=== PATIENT | female | born 1960 | race American Indian/Alaskan Native ===

== ENCOUNTER 2020-07-05 15:57 | Emergency (ER) | payer MEDICAID ==
[2020-07-05 19:55] LABS: Alanine Aminotransferase 19 units/L (7-56); Blood Urea Nitrogen 10 mg/dL (7-17); Calcium 9.3 mg/dL (8.4-10.2); Hemolysis Index 26
[2020-07-05 20:00] LABS: BUN/Creatinine Ratio 17
[2020-07-05 20:12] LABS: Hematocrit 43.4 % (30.3-42.9); Hemoglobin 14.3 gm/dl (10.1-14.3); Mean Corpuscular HGB Conc 33 % (30-34); Mean Corpuscular Volume 93 fl (79-97); Platelet Count 181 K/mm3 (140-440); Red Blood Count 4.64 M/mm3 (3.65-5.03); Red Cell Distribution Width 13.3 % (13.2-15.2)
[2020-07-05 20:13] LABS: Eosinophils % (Auto) 0.8 % (0.0-4.3); Lymphocytes % (Auto) 32.6 % (13.4-35.0); Monocytes % (Auto) 8.8 % (0.0-7.3)
[2020-07-05 20:14] LABS: Basophils % (Auto) 0.4 % (0.0-1.8); Eosinophils # (Auto) 0.1 K/mm3 (0.0-0.4); Lymphocytes # (Auto) 2.4 K/mm3 (1.2-5.4); Monocytes # (Auto) 0.6 K/mm3 (0.0-0.8)
[2020-07-06] MEDS ORDERED: PHENYTOIN 100 MG CAPSULE.ER PO ONE (00:39)
[2020-07-06] MEDS ORDERED: levETIRAcetam 500 MG TAB PO ONE ×2 (00:39)
[2020-07-06] MEDS ORDERED: TOPIRAMATE TAB 200 MG TAB PO STA (00:39)
--- NOTE | 2020-07-06 00:41 | Emergency Department Report ---
ED General Adult HPI - General Chief complaint: Seizure Stated complaint: SEIZURE PUI?: No Time Seen by Provider: 07/06/20 00:23 Source: patient, RN notes reviewed Mode of arrival: Ambulatory Limitations: No Limitations, Other (Patient is somewhat of a poor historian) - History of Present Illness Initial comments: The patient was evaluated in the emergency department for symptoms described in the history of present illness. He/she was evaluated in the context of the global COVID-19 pandemic, which necessitated consideration that the patient might be at risk for infection with the virus that causes COVID-19. Institutional protocols and algorithms that pertain to the evaluation of patients at risk for COVID-19 are in a state of rapid change based on information released by regulatory bodies including the CDC and federal and state organizations. These policies and algorithms were followed during the patient's care in the emergency department. Please note that these policies, procedures and recommendations changed on a rapid basis. Primary care doctor: Dr. Blaze Solitario Past medical history: High cholesterol, seizure disorder, currently takes Dilantin, 300 mg daily, Topamax, 200 mg twice daily, Keppra, 1000 mg twice daily, 250 mg twice daily The patient is accompanied by a caregiver, who reports that she is the patient's legal power of ladler and guardian. The patient currently resides in a program where she requires a 24-hour monitoring. The patient is brought to the hospital by her caregiver for complaint of breakthrough seizure. Patient caregiver states that Friday, 2 nights ago, patient had an episode of staring off into space, with eyes rolling back into her head, lasting around 4 minutes, consistent with prior episodes of seizures. Then, earlier on , Friday, patient reportedly had another seizure- like event. Prior to these events, the patient's last convulsive events/seizure was in May of this year. The patient is reportedly compliant with her medications. Her caregiver indicates that she has follow-up with her neurologist tomorrow. Patient denies headache, neck pain, chest pain, abdominal pain, shortness of breath and trauma. She has a mild cough, but no loss of taste or smell, and denies urinary symptoms. Symptoms are resolved at this moment. -: Sudden, minutes(s) Consistency: intermittent Improves with: none Worsens with: none - Related Data Previous Rx's Medication Instructions Recorded Last Taken Type Nitrofurantoin [place]/M-Cryst 100 mg PO Q12HR #13 capsule 07/06/20 Unknown Rx [Macrobid CAP] Allergies Allergy/AdvReac Type Severity Reaction Status Date / Time No Known Allergies Allergy Verified 07/06/20 00:45 ED Review of Systems ROS: Stated complaint: SEIZURE Other details as noted in HPI Constitutional: denies: fever Eyes: denies: eye discharge ENT: denies: epistaxis Respiratory: cough Cardiovascular: denies: chest pain Gastrointestinal: denies: nausea, vomiting, diarrhea Genitourinary: denies: dysuria Musculoskeletal: denies: back pain Neurological: denies: weakness ED Past Medical Hx - Medications Home Medications: Home Medications Medication Instructions Recorded Confirmed Last Taken Type Nitrofurantoin [place]/M-Cryst 100 mg PO Q12HR #13 capsule 07/06/20 Unknown Rx [Macrobid CAP] ED Physical Exam - General Limitations: No Limitations General appearance: alert, in no apparent distress - Head Head exam: Present: atraumatic, normocephalic - Eye Eye exam: Present: normal appearance, PERRL, EOMI. Absent: nystagmus - ENT ENT exam: Present: normal exam, normal orophraynx, mucous membranes moist, normal external ear exam - Neck Neck exam: Present: normal inspection, full ROM. Absent: tenderness, meningismus - Respiratory Respiratory exam: Present: normal lung sounds bilaterally. Absent: respiratory distress, wheezes, rales, rhonchi, stridor, decreased breath sounds - Cardiovascular Cardiovascular Exam: Present: regular rate, normal rhythm, normal heart sounds. Absent: bradycardia, tachycardia, irregular rhythm, systolic murmur, diastolic murmur, rubs, gallop - GI/Abdominal GI/Abdominal exam: Present: soft. Absent: distended, tenderness, guarding, rigid, pulsatile mass - Extremities Exam Extremities exam: Present: normal inspection, full ROM, pedal edema (1+ edema in the bilateral lower extremity), other (2+ pulses noted in the bilateral upper and lower extremities. There is no palpable cord. negative Homans sign. Muscular compartments are soft. The pelvis is stable.). Absent: calf tenderness - Back Exam Back exam: Present: normal inspection, full ROM. Absent: tenderness, CVA tenderness (R), CVA tenderness (L), paraspinal tenderness, vertebral tenderness - Neurological Exam Neurological exam: Present: alert, normal gait, other (No facial droop. Tongue midline. Extraocular movements intact bilaterally. Facial sensation intact to light touch in V1, V2, V3 distribution bilaterally. 5 and a 5 strength in 4 extremities. Sensation intact to light touch in 4 extremities.). Absent: motor sensory deficit - Psychiatric Psychiatric exam: Present: normal affect, normal mood - Skin Skin exam: Present: warm, dry, intact, normal color. Absent: rash ED Course Vital Signs 07/05/20 07/06/20 16:09 01:09 Temperature 98.5 F Pulse Rate 81 68 Respiratory 14 Rate Blood Pressure 137/81 134/90 [Left] O2 Sat by Pulse 97 Oximetry - Reevaluation(s) Reevaluation #1: 07/06/20 02:17 Patient observed in this department for almost 10-1/2 hours. No convulsive events noted. Vital signs are stable, patient resting comfortably in her stretcher and she is in no acute distress, urinalysis consistent with pyuria. Patient will be treated empirically with Macrobid. ED Medical Decision Making - Lab Data Result diagrams: 07/05/20 18:56 07/05/20 18:56 Vital Signs 07/05/20 16:09 Temperature 98.5 F Pulse Rate 81 Blood Pressure 137/81 [Left] Lab Results 07/05/20 07/05/20 Range/Units 18:56 18:56 WBC 7.3 (4.5-11.0) K/mm3 RBC 4.64 (3.65-5.03) M/mm3 Hgb 14.3 (10.1-14.3) gm/dl Hct 43.4 H (30.3-42.9) % MCV 93 (79-97) fl MCH 31 (28-32) pg MCHC 33 (30-34) % RDW 13.3 (13.2-15.2) % Plt Count 181 (140-440) K/mm3 Lymph % (Auto) 32.6 (13.4-35.0) % [place] % (Auto) 8.8 H (0.0-7.3) % Eos % (Auto) 0.8 (0.0-4.3) % Baso % (Auto) 0.4 (0.0-1.8) % Lymph # (Auto) 2.4 (1.2-5.4) K/mm3 [place] # (Auto) 0.6 (0.0-0.8) K/mm3 Eos # (Auto) 0.1 (0.0-0.4) K/mm3 Baso # (Auto) 0.0 (0.0-0.1) K/mm3 Add Manual Diff Complete Seg Neutrophils % 57.4 (40.0-70.0) % Seg Neutrophils # 4.2 (1.8-7.7) K/mm3 Sodium 142 (137-145) mmol/L Potassium 4.5 (3.6-5.0) mmol/L Chloride 106.9 (98-107) mmol/L Carbon Dioxide 20 L (22-30) mmol/L Anion Gap 20 mmol/L BUN 10 (7-17) mg/dL Creatinine 0.6 (0.6-1.2) mg/dL Estimated GFR > 60 ml/min BUN/Creatinine Ratio 17 % Glucose 95 (65-100) mg/dL Calcium 9.3 (8.4-10.2) mg/dL Magnesium 2.50 H (1.7-2.3) mg/dL Total Bilirubin 0.20 (0.1-1.2) mg/dL AST 17 (5-40) units/L ALT 19 (7-56) units/L Alkaline Phosphatase 120 (35-129) units/L Total Protein 7.6 (6.3-8.2) g/dL Albumin 4.0 (3.9-5) g/dL Albumin/Globulin Ratio 1.1 % - EKG Data -: EKG Interpreted by Mt EKG shows normal: sinus rhythm Rate: normal - EKG Data When compared to previous EKG there are: previous EKG unavailable 07/06/20 01:31 Sinus rhythm, 72 bpm, left axis deviation, left anterior fascicular block, QTC prolonged, abnormal EKG, no prior for comparison, the EKG is not a STEMI. - Radiology Data Radiology results: pending, report reviewed, image reviewed - Medical Decision Making Differential diagnosis, including but not limited to: Seizure, subtherapeutic antiepileptic drug level, pneumonia, urinary tract infection, pseudoseizure Assessment and plan: 60-year-old female, who is afebrile, with reassuring vital signs, walking with a steady gait, who is awake, alert, oriented, moving 4 extremities and protecting her airway, with a nonfocal motor exam, who does not appear to be in any acute distress, with a complaint of resolved seizure. Patient has been observed in this ER for over 8 hours without recurrent convulsive event, or decompensation. Screening laboratory studies unremarkable, urinalysis, EKG, x-ray of the chest ordered, repeat vital signs pending, we anticipate discharge with close outpatient follow-up, as the patient reportedly has follow-up with her primary neurologist within the next 36 hours. Critical care attestation.: If time is entered above; I have spent that time in minutes in the direct care of this critically ill patient, excluding procedure time. ED Disposition Clinical Impression: History of seizure, Pyuria Disposition: TO HOME OR SELFCARE Is pt being admited?: No Does the pt Need Aspirin: No Condition: Stable Instructions: Recurrent Seizures Adult (ED) Additional Instructions: Please continue current outpatient medications. Please follow-up with your neurologist within the next 3 to 5 days as scheduled[address] Do not drive or operate motor vehicles until cleared to do so by a primary care doctor or neurologist. The emergency room right away with new pain, worsened pain, migration of pain, projectile vomiting, change in mental status, confusion, inability to tolerate liquid feeds, new, worsened or different symptoms not present on the initial emergency room evaluation. Prescriptions: Nitrofurantoin [place]/M-Cryst [Macrobid CAP] 100 mg PO Q12HR #13 capsule Referrals: DAYTON HUMPHREY MD [Referring] - 3-5 Days JULIO CARVAJAL MD [Staff Physician] - 3-5 Days
[2020-07-06 01:11] LABS: Bilirubin,Urine NEG (Negative); Blood,Urine NEG (Negative); Color,Urine Yellow (Yellow); Protein,Urine <15 mg/dL mg/dL (Negative); Urobilinogen,Urine < 2.0 mg/dL (<2.0)
--- NOTE | 2020-07-06 01:19 | XRay Report ---
CHEST 1 VIEW INDICATION: cough breakthrough sz. COMPARISON: None. FINDINGS: Support devices: None. Heart: Normal. Lungs/Pleura: No acute pulmonary or pleural findings. IMPRESSION: 1. No acute findings. Signer Name: Alex Falcon MD Signed: 07/06/2020 1:14 AM Workstation Name: [id number]
[2020-07-06] MEDS ORDERED: NITROFURANTOIN MONOHYD/M-CRYST 100 MG CAP PO ONE (01:31)
[2020-07-06 02:33] VITALS: BP 135/87
== END 2020-07-06 03:15 | disposition home or self-care (01) ==
LOC: ED 15:57
DX: R82.81 Pyuria (principal); Z86.69 Personal history of other diseases of the nervous system and sense organs; Z79.899 Other long term (current) drug therapy
CPT/HCPCS: 36415; 71045; 80053; 80185; 81001; 82550; 83735; 85025; 87086; 93005

== ENCOUNTER 2021-02-08 12:56 | Emergency (ER) | payer MEDICAID ==
--- NOTE | 2021-02-08 13:20 | Event Note ---
ED Screening Note ED Screening Note: neurologist: Dr. Cortez had 4 seizures today caregiver states she "stares into space and does not respond" no tonic clonic activity is on dilantin, keppra, and topomax went to neurologist today and was advised to be seen in the ED caregiver states she has been with her since July and she has had no seizure activity during that time PMHx none no allergies to meds This initial assessment/diagnostic orders/clinical plan/treatment(s) is/are subject to change based on patients health status, clinical progression and re- assessment by fellow clinical providers in the ED. Further treatment and workup at subsequent clinical providers discretion. Patient/guardian urged not to elope from the ED as their condition may be serious if not clinically assessed and managed. Initial orders include: labs, ua, ct
[2021-02-08 13:42] LABS: Basophils % (Auto) 0.4 % (0.0-1.8); Eosinophils % (Auto) 0.2 % (0.0-4.3); Hematocrit 42.3 % (30.3-42.9); Hemoglobin 14.2 gm/dl (10.1-14.3); Lymphocytes # (Auto) 1.5 K/mm3 (1.2-5.4); Mean Corpuscular HGB Conc 34 % (30-34); Mean Corpuscular Volume 93 fl (79-97); Monocytes # (Auto) 0.3 K/mm3 (0.0-0.8); Monocytes % (Auto) 5.8 % (0.0-7.3); Platelet Count 195 K/mm3 (140-440); Red Blood Count 4.56 M/mm3 (3.65-5.03); Red Cell Distribution Width 13.1 % (13.2-15.2)
[2021-02-08 14:07] LABS: Alanine Aminotransferase 18 units/L (7-56); Albumin 4.3 g/dL (3.9-5); Blood Urea Nitrogen 10 mg/dL (7-17); Calcium 9.1 mg/dL (8.4-10.2); Hemolysis Index 21
[2021-02-08 14:13] LABS: BUN/Creatinine Ratio 20
--- NOTE | 2021-02-08 14:14 | Cat Scan Report ---
CT BRAIN: 02/08/2021 INDICATION / CLINICAL INFORMATION: multiple seizures. COMPARISON: None available. FINDINGS: BRAIN/INTRACRANIAL STRUCTURES: Unenhanced CT images of the brain were obtained. There is no evidence of acute abnormality. Atrophic changes are present in the left parietal lobe, associated with some ex vacuo dilatation of t he left trigone. This has a chronic appearance, and may be due to prior ischemic or traumatic injury, or developmental anomaly. There is no evidence of acute ischemic injury, hemorrhage, or mass. There are no abnormal extra-axial fluid collections. EXTRACRANIAL STRUCTURES: Unremarkable. IMPRESSION: No evidence of acute abnormality. Chronic cortical atrophic changes and left parietal lobe. All CT scans at this location are performed using dose reduction to ALARA by means of automated expos ure control. Signer Name: Ernie Wilson MD Signed: 02/08/2021 2:10 PM Workstation Name: [id number]
[2021-02-08] MEDS ORDERED: levETIRAcetam 1000 MG/NS 0.75% 1,000 MG/100 ML BAG IV ONE ×2 (16:16→16:17)
--- NOTE | 2021-02-08 16:16 | Emergency Department Report ---
ED General Adult HPI - General Chief complaint: Seizure Stated complaint: SEIZURES PUI?: No Time Seen by Provider: 02/08/21 13:18 Source: patient (Patient and caregiver), RN notes reviewed, old records reviewed Mode of arrival: Ambulatory Limitations: No Limitations - History of Present Illness Initial comments: The patient was evaluated in the emergency department for symptoms described in the history of present illness. He/she was evaluated in the context of the global COVID-19 pandemic, which necessitated consideration that the patient might be at risk for infection with the virus that causes COVID-19. Institutional protocols and algorithms that pertain to the evaluation of patients at risk for COVID-19 are in a state of rapid change based on information released by regulatory bodies including the CDC and federal and state organizations. These policies and algorithms were followed during the patient's care in the emergency department. Please note that these policies, procedures and recommendations changed on a rapid basis. Primary CARE doctor: Dr. Blaze Solitario Neurology: [facility]; [phone] Past medical history: Cerebral palsy, high cholesterol, seizure disorder Current seizure medications include Topamax, 200 mg twice daily, Keppra, 1500 mg twice daily, Dilantin, 400 mg nightly. This is a pleasant 60-year-old female. I have evaluated this patient in the past. The patient presents to the ER today with caregiver, with a complaint of seizures. The patient states that she has been in her usual state of health, compliant with her medications, with no new medications, when she reportedly had a generalized convulsive event this morning, which lasted around 2 minutes. Reportedly, she had 3 other short episodes, shortly thereafter. Prior to these events, the patient denies headache, neck pain, chest pain, abdominal pain, shortness of breath, and urinary symptoms. She has received the Covid vaccinations, and denies Covid symptomatology. Her last seizure/convulsive event was June 2020, when I had previously evaluated this patient. She was initially confused, and presumably postictal, as per her caregiver, but she is now back to her baseline, and endorses readiness for discharge. Her caregiver also endorses that this patient appears to be back to her baseline . -: Sudden Consistency: intermittent Improves with: none Worsens with: none Associated Symptoms: denies other symptoms - Related Data Home Medications Medication Instructions Recorded Confirmed Last Taken Ascorbic Acid [Vitamin C] 500 mg PO QDAY 02/08/21 02/08/21 Unknown AtorvaSTATin [Lipitor] 10 mg PO QHS 02/08/21 02/08/21 Unknown Calcium Carbonate/Vitamin D3 1 each PO QDAY 02/08/21 02/08/21 Unknown [Os-Jhony 500+D3 Caplet] Cholecalciferol (Vitamin D3) 2,000 unit PO QDAY 02/08/21 02/08/21 Unknown [Vitamin D3 2,000 UNIT CAP] Phenytoin [Dilantin] 200 mg PO QHS 02/08/21 02/08/21 Unknown Topiramate [Topamax] 200 mg PO BID 02/08/21 02/08/21 Unknown Zinc [Zinc 50mg TAB] 50 mg PO QDAY 02/08/21 02/08/21 Unknown levETIRAcetam [Keppra TAB] 750 mg PO BID 02/08/21 02/08/21 Unknown Previous Rx's Medication Instructions Recorded Last Taken Type Nitrofurantoin [place]/M-Cryst 100 mg PO Q12HR #13 capsule 02/08/21 Unknown Rx [Macrobid CAP] Allergies Allergy/AdvReac Type Severity Reaction Status Date / Time No Known Allergies Allergy Verified 07/06/20 00:45 ED Review of Systems ROS: Stated complaint: SEIZURES Other details as noted in HPI Comment: All other systems reviewed and negative Neurological: confusion, other (Patient initially had seizures x4, and was confused. She is now back to her baseline.) ED Past Medical Hx - Past Medical History Previous Medical History?: Yes Hx Seizures: Yes - Medications Home Medications: Home Medications Medication Instructions Recorded Confirmed Last Taken Type Ascorbic Acid [Vitamin C] 500 mg PO QDAY 02/08/21 02/08/21 Unknown History AtorvaSTATin [Lipitor] 10 mg PO QHS 02/08/21 02/08/21 Unknown History Calcium Carbonate/Vitamin D3 1 each PO QDAY 02/08/21 02/08/21 Unknown History [Os-Jhony 500+D3 Caplet] Cholecalciferol (Vitamin D3) 2,000 unit PO QDAY 02/08/21 02/08/21 Unknown History [Vitamin D3 2,000 UNIT CAP] Nitrofurantoin [place]/M-Cryst 100 mg PO Q12HR #13 capsule 02/08/21 Unknown Rx [Macrobid CAP] Phenytoin [Dilantin] 200 mg PO QHS 02/08/21 02/08/21 Unknown History Topiramate [Topamax] 200 mg PO BID 02/08/21 02/08/21 Unknown History Zinc [Zinc 50mg TAB] 50 mg PO QDAY 02/08/21 02/08/21 Unknown History levETIRAcetam [Keppra TAB] 750 mg PO BID 02/08/21 02/08/21 Unknown History ED Physical Exam - General Limitations: No Limitations General appearance: alert, in no apparent distress - Head Head exam: Present: atraumatic, normocephalic - Eye Eye exam: Present: normal appearance, PERRL, EOMI, other (Visual acuity intact to finger counting, color perception, reading at a close distance). Absent: nystagmus - ENT ENT exam: Present: normal exam, normal orophraynx, mucous membranes moist, dayanara l external ear exam - Neck Neck exam: Present: normal inspection, full ROM. Absent: tenderness, meningismus - Respiratory Respiratory exam: Present: normal lung sounds bilaterally. Absent: respiratory distress, wheezes, rales, rhonchi, stridor, decreased breath sounds - Cardiovascular Cardiovascular Exam: Present: regular rate, normal rhythm, normal heart sounds. Absent: bradycardia, tachycardia, irregular rhythm, systolic murmur, diastolic murmur, rubs, gallop - GI/Abdominal GI/Abdominal exam: Present: soft. Absent: distended, tenderness, guarding, rebound, rigid, pulsatile mass - Extremities Exam Extremities exam: Present: normal inspection, full ROM, other (2+ pulses noted in the bilateral upper and lower extremities. There is no palpable cord. negative Homans sign. Muscular compartments are soft. The pelvis is stable.). Absent: pedal edema, calf tenderness - Back Exam Back exam: Present: normal inspection. Absent: tenderness, CVA tenderness (R), CVA tenderness (L), paraspinal tenderness, vertebral tenderness - Neurological Exam Neurological exam: Present: alert, oriented X3, normal gait, other (No facial droop. Tongue midline. Extraocular movements intact bilaterally. Facial sensation intact to light touch in V1, V2, V3 distribution bilaterally. 5 and a 5 strength in 4 extremities. Sensation intact to light touch in 4 extremities.). Absent: motor sensory deficit - Psychiatric Psychiatric exam: Present: normal affect, normal mood - Skin Skin exam: Present: warm, dry, intact, normal color. Absent: rash ED Course Vital Signs 02/08/21 02/08/21 13:14 16:15 Temperature 98.0 F Pulse Rate 90 84 Respiratory 20 15 Rate Blood Pressure 144/91 [Right] O2 Sat by Pulse 96 98 Oximetry - Reevaluation(s) Reevaluation #1: 02/08/21 17:17 Differential diagnosis, including but not limited to: Seizure, subtherapeutic AED level, pyuria, urinary tract infection, electrolyte derangement Assessment and plan: 60-year-old female, who presents with resolved convulsive events, now at her baseline. She is afebrile, with reassuring vital signs, walks with a steady gait, is alert, oriented, with a GCS of 15, and in no acute distress. Urinalysis pending at this time. This patient is clinically sober. Loaded with 2 g of Keppra. Urinalysis, and phenytoin level pending. EKG is unchanged from prior. Noncontrast CT scan of the brain was obtained prior to my personal evaluation of this patient, it is negative for acute findings. Reassess after the aforementioned laboratory studies result. Ideally, we would like to discuss with her neurologist as a courtesy, to arrange outpatient follow-up, and to discuss if patient's medications need to be adjusted. Patient and caregiver endorse that patient's medications have not been changed or adjusted recently, and she reports taking no medications or substances that she is aware of, that can potentially lower seizure threshold. The patient is counseled to not drive or operate motor vehicles. However, patient and caregiver state that she does not drive or operate motor vehicles anyhow. Reevaluation #2: 02/08/21 18:53 Patient reassessed multiple times. She is in no acute distress. She walks with a steady gait. No convulsive activity noted. Urinalysis demonstrates bacteriuria. Asymptomatic funguria suggested, patient is not neutropenic, immune compromise, excessively low birthweight, and she is not had recent ur ologic instrumentation. As per up-to-date recommendations, no therapy indicated at this time. Dilantin level pending at this time. Have contacted the lab, they tell me it should be about 10 minutes until it resolves. Reevaluation #3: 02/08/21 19:41 Phenytoin level acceptable at this time. We are reaching out to the patient's private neurologist. Please note that this patient is experiencing a prolonged stay in this emergency room because they provided me with the incorrect phone number to reach their neurologist initially. They have since updated the number to the correct phone number, and we are now reaching out to discuss the patient's care. Reevaluation #4: 02/08/21 19:52 Final reevaluation. No further seizures noted. Have contacted covering neurologist for patient's private neurologist, Dr. Khan. We discussed the patient's history, physical, pertinent examination laboratory studies and imaging studies. She advises that AEDs should not be adjusted in the emergency room, and that the patient should contact her neurologist in the morning, to arrange close outpatient follow-up, to have her outpatient medications adjusted. She is in agreement with antibiotics for bacteriuria. Patient will be discharged at this time with her caregiver. Return precautions are reviewed ED Medical Decision Making - Lab Data Result diagrams: 02/08/21 13:29 02/08/21 13:29 Vital Signs 02/08/21 13:14 Temperature 98.0 F Pulse Rate 90 Respiratory 20 Rate Blood Pressure 144/91 [Right] O2 Sat by Pulse 96 Oximetry Lab Results 02/08/21 02/08/21 02/08/21 Range/Units 13:29 13:29 13:29 WBC 5.4 (4.5-11.0) K/mm3 RBC 4.56 (3.65-5.03) M/mm3 Hgb 14.2 (10.1-14.3) gm/dl Hct 42.3 (30.3-42.9) % MCV 93 (79-97) fl MCH 31 (28-32) pg MCHC 34 (30-34) % RDW 13.1 L (13.2-15.2) % Plt Count 195 (140-440) K/mm3 Lymph % (Auto) 27.0 (13.4-35.0) % [place] % (Auto) 5.8 (0.0-7.3) % Eos % (Auto) 0.2 (0.0-4.3) % Baso % (Auto) 0.4 (0.0-1.8) % Lymph # (Auto) 1.5 (1.2-5.4) K/mm3 [place] # (Auto) 0.3 (0.0-0.8) K/mm3 Eos # (Auto) 0.0 (0.0-0.4) K/mm3 Baso # (Auto) 0.0 (0.0-0.1) K/mm3 Seg Neutrophils % 66.6 (40.0-70.0) % Seg Neutrophils # 3.6 (1.8-7.7) K/mm3 Sodium 140 (137-145) mmol/L Potassium 3.7 (3.6-5.0) mmol/L Chloride 106.5 (98-107) mmol/L Carbon Dioxide 23 (22-30) mmol/L Anion Gap 14 mmol/L BUN 10 (7-17) mg/dL Creatinine 0.5 L (0.6-1.2) mg/dL Estimated GFR > 60 ml/min BUN/Creatinine Ratio 20 % Glucose 102 H (65-100) mg/dL Calcium 9.1 (8.4-10.2) mg/dL Magnesium 1.90 (1.7-2.3) mg/dL Total Bilirubin 0.20 (0.1-1.2) mg/dL AST 15 (5-40) units/L ALT 18 (7-56) units/L Alkaline Phosphatase 122 (35-129) units/L Total Creatine Kinase 98 (30-135) units/L Total Protein 7.6 (6.3-8.2) g/dL Albumin 4.3 (3.9-5) g/dL Albumin/Globulin Ratio 1.3 % Salicylates < 0.3 L (2.8-20.0) mg/dL Acetaminophen (10.0-30.0) ug/mL Plasma/Serum Alcohol (0-0.07) % 02/08/21 02/08/21 02/08/21 Range/Units 13:29 13:29 16:23 WBC (4.5-11.0) K/mm3 RBC (3.65-5.03) M/mm3 Hgb (10.1-14.3) gm/dl Hct (30.3-42.9) % MCV (79-97) fl MCH (28-32) pg MCHC (30-34) % RDW (13.2-15.2) % Plt Count (140-440) K/mm3 Lymph % (Auto) (13.4-35.0) % [place] % (Auto) (0.0-7.3) % Eos % (Auto) (0.0-4.3) % Baso % (Auto) (0.0-1.8) % Lymph # (Auto) (1.2-5.4) K/mm3 [place] # (Auto) (0.0-0.8) K/mm3 Eos # (Auto) (0.0-0.4) K/mm3 Baso # (Auto) (0.0-0.1) K/mm3 Seg Neutrophils % (40.0-70.0) % Seg Neutrophils # (1.8-7.7) K/mm3 Sodium (137-145) mmol/L Potassium (3.6-5.0) mmol/L Chloride (98-107) mmol/L Carbon Dioxide (22-30) mmol/L Anion Gap mmol/L BUN (7-17) mg/dL Creatinine (0.6-1.2) mg/dL Estimated GFR ml/min BUN/Creatinine Ratio % Glucose (65-100) mg/dL Calcium (8.4-10.2) mg/dL Magnesium 2.00 (1.7-2.3) mg/dL Total Bilirubin (0.1-1.2) mg/dL AST (5-40) units/L ALT (7-56) units/L Alkaline Phosphatase (35-129) units/L Total Creatine Kinase 101 (30-135) units/L Total Protein (6.3-8.2) g/dL Albumin (3.9-5) g/dL Albumin/Globulin Ratio % Salicylates (2.8-20.0) mg/dL Acetaminophen 5.0 L (10.0-30.0) ug/mL Plasma/Serum Alcohol < 0.01 (0-0.07) % Vital Signs 02/08/21 02/08/21 13:14 16:15 Temperature 98.0 F Pulse Rate 90 84 Respiratory 20 15 Rate Blood Pressure 144/91 [Right] O2 Sat by Pulse 96 98 Oximetry Lab Results 02/08/21 02/08/21 02/08/21 Range/Units 13:29 13:29 13:29 WBC 5.4 (4.5-11.0) K/mm3 RBC 4.56 (3.65-5.03) M/mm3 Hgb 14.2 (10.1-14.3) gm/dl Hct 42.3 (30.3-42.9) % MCV 93 (79-97) fl MCH 31 (28-32) pg MCHC 34 (30-34) % RDW 13.1 L (13.2-15.2) % Plt Count 195 (140-440) K/mm3 Lymph % (Auto) 27.0 (13.4-35.0) % [place] % (Auto) 5.8 (0.0-7.3) % Eos % (Auto) 0.2 (0.0-4.3) % Baso % (Auto) 0.4 (0.0-1.8) % Lymph # (Auto) 1.5 (1.2-5.4) K/mm3 [place] # (Auto) 0.3 (0.0-0.8) K/mm3 Eos # (Auto) 0.0 (0.0-0.4) K/mm3 Baso # (Auto) 0.0 (0.0-0.1) K/mm3 Seg Neutrophils % 66.6 (40.0-70.0) % Seg Neutrophils # 3.6 (1.8-7.7) K/mm3 Sodium 140 (137-145) mmol/L Potassium 3.7 (3.6-5.0) mmol/L Chloride 106.5 (98-107) mmol/L Carbon Dioxide 23 (22-30) mmol/L Anion Gap 14 mmol/L BUN 10 (7-17) mg/dL Creatinine 0.5 L (0.6-1.2) mg/dL Estimated GFR > 60 ml/min BUN/Creatinine Ratio 20 % Glucose 102 H (65-100) mg/dL Calcium 9.1 (8.4-10.2) mg/dL Magnesium 1.90 (1.7-2.3) mg/dL Total Bilirubin 0.20 (0.1-1.2) mg/dL AST 15 (5-40) units/L ALT 18 (7-56) units/L Alkaline Phosphatase 122 (35-129) units/L Total Creatine Kinase 98 (30-135) units/L Total Protein 7.6 (6.3-8.2) g/dL Albumin 4.3 (3.9-5) g/dL Albumin/Globulin Ratio 1.3 % Urine Color (Yellow) Urine Turbidity (Clear) Urine pH (5.0-7.0) Ur Specific [place] (1.003-1.030) Urine Protein (Negative) mg/dL Urine Glucose (UA) (Negative) mg/dL Urine Ketones (Negative) mg/dL Urine Blood (Negative) Urine Nitrite (Negative) Urine Bilirubin (Negative) Urine Urobilinogen (<2.0) mg/dL Ur Leukocyte Esterase (Negative) Urine WBC (Auto) (0.0-6.0) /HPF Urine RBC (Auto) (0.0-6.0) /HPF U Epithel Cells (Auto) (0-13.0) /HPF Urine Bacteria (Auto) (Negative) /HPF Urine Yeast (Budding) /HPF Salicylates < 0.3 L (2.8-20.0) mg/dL Acetaminophen (10.0-30.0) ug/mL Plasma/Serum Alcohol (0-0.07) % 02/08/21 02/08/21 02/08/21 Range/Units 13:29 13:29 16:23 WBC (4.5-11.0) K/mm3 RBC (3.65-5.03) M/mm3 Hgb (10.1-14.3) gm/dl Hct (30.3-42.9) % MCV (79-97) fl MCH (28-32) pg MCHC (30-34) % RDW (13.2-15.2) % Plt Count (140-440) K/mm3 Lymph % (Auto) (13.4-35.0) % [place] % (Auto) (0.0-7.3) % Eos % (Auto) (0.0-4.3) % Baso % (Auto) (0.0-1.8) % Lymph # (Auto) (1.2-5.4) K/mm3 [place] # (Auto) (0.0-0.8) K/mm3 Eos # (Auto) (0.0-0.4) K/mm3 Baso # (Auto) (0.0-0.1) K/mm3 Seg Neutrophils % (40.0-70.0) % Seg Neutrophils # (1.8-7.7) K/mm3 Sodium (137-145) mmol/L Potassium (3.6-5.0) mmol/L Chloride (98-107) mmol/L Carbon Dioxide (22-30) mmol/L Anion Gap mmol/L BUN (7-17) mg/dL Creatinine (0.6-1.2) mg/dL Estimated GFR ml/min BUN/Creatinine Ratio % Glucose (65-100) mg/dL Calcium (8.4-10.2) mg/dL Magnesium 2.00 (1.7-2.3) mg/dL Total Bilirubin (0.1-1.2) mg/dL AST (5-40) units/L ALT (7-56) units/L Alkaline Phosphatase (35-129) units/L Total Creatine Kinase 101 (30-135) units/L Total Protein (6.3-8.2) g/dL Albumin (3.9-5) g/dL Albumin/Globulin Ratio % Urine Color (Yellow) Urine Turbidity (Clear) Urine pH (5.0-7.0) Ur Specific [place] (1.003-1.030) Urine Protein (Negative) mg/dL Urine Glucose (UA) (Negative) mg/dL Urine Ketones (Negative) mg/dL Urine Blood (Negative) Urine Nitrite (Negative) Urine Bilirubin (Negative) Urine Urobilinogen (<2.0) mg/dL Ur Leukocyte Esterase (Negative) Urine WBC (Auto) (0.0-6.0) /HPF Urine RBC (Auto) (0.0-6.0) /HPF U Epithel Cells (Auto) (0-13.0) /HPF Urine Bacteria (Auto) (Negative) /HPF Urine Yeast (Budding) /HPF Salicylates (2.8-20.0) mg/dL Acetaminophen 5.0 L (10.0-30.0) ug/mL Plasma/Serum Alcohol < 0.01 (0-0.07) % // Range/Units Unknown WBC (4.5-11.0) K/mm3 RBC (3.65-5.03) M/mm3 Hgb (10.1-14.3) gm/dl Hct (30.3-42.9) % MCV (79-97) fl MCH (28-32) pg MCHC (30-34) % RDW (13.2-15.2) % Plt Count (140-440) K/mm3 Lymph % (Auto) (13.4-35.0) % [place] % (Auto) (0.0-7.3) % Eos % (Auto) (0.0-4.3) % Baso % (Auto) (0.0-1.8) % Lymph # (Auto) (1.2-5.4) K/mm3 [place] # (Auto) (0.0-0.8) K/mm3 Eos # (Auto) (0.0-0.4) K/mm3 Baso # (Auto) (0.0-0.1) K/mm3 Seg Neutrophils % (40.0-70.0) % Seg Neutrophils # (1.8-7.7) K/mm3 Sodium (137-145) mmol/L Potassium (3.6-5.0) mmol/L Chloride (98-107) mmol/L Carbon Dioxide (22-30) mmol/L Anion Gap mmol/L BUN (7-17) mg/dL Creatinine (0.6-1.2) mg/dL Estimated GFR ml/min BUN/Creatinine Ratio % Glucose (65-100) mg/dL Calcium (8.4-10.2) mg/dL Magnesium (1.7-2.3) mg/dL Total Bilirubin (0.1-1.2) mg/dL AST (5-40) units/L ALT (7-56) units/L Alkaline Phosphatase (35-129) units/L Total Creatine Kinase (30-135) units/L Total Protein (6.3-8.2) g/dL Albumin (3.9-5) g/dL Albumin/Globulin Ratio % Urine Color Straw (Yellow) Urine Turbidity Slightly-cloudy (Clear) Urine pH 7.0 (5.0-7.0) Ur Specific [place] 1.008 (1.003-1.030) Urine Protein <15 mg/dl (Negative) mg/dL Urine Glucose (UA) Neg (Negative) mg/dL Urine Ketones Neg (Negative) mg/dL Urine Blood Neg (Negative) Urine Nitrite Neg (Negative) Urine Bilirubin Neg (Negative) Urine Urobilinogen < 2.0 (<2.0) mg/dL Ur Leukocyte Esterase Tr (Negative) Urine WBC (Auto) 2.0 (0.0-6.0) /HPF Urine RBC (Auto) 1.0 (0.0-6.0) /HPF U Epithel Cells (Auto) 5.0 (0-13.0) /HPF Urine Bacteria (Auto) 1+ (Negative) /HPF Urine Yeast (Budding) 1+ /HPF Salicylates (2.8-20.0) mg/dL Acetaminophen (10.0-30.0) ug/mL Plasma/Serum Alcohol (0-0.07) % - EKG Data -: EKG Interpreted by [facility] EKG shows normal: sinus rhythm Rate: normal - EKG Data 02/08/21 17:13 EKG interpreted at 17: 00 Sinus rhythm, 82 bpm. Left axis, left anterior fascicular block. QTC prolonged, 451 ms. Minimal motion artifact. This is an abnormal EKG. This is not a STEMI. This is unchanged from prior EKG from June 2020 - Radiology Data Radiology results: report reviewed, image reviewed [facility] [address] [place] [address] Cat Scan Report Signed Patient: FLORENCE RAMOS MR#: [id number] 25 : 1960 Acct:[id number] Age/Sex: 60 / F ADM Date: 02/08/21 Loc: ED Attending Dr: Ordering Physician: MARTHA LOPEZ Date of Service: 02/08/21 Procedure(s): CT head/brain wo con Accession Number(s): [id number] cc: MARTHA LOPEZ CT BRAIN: 02/08/2021 INDICATION / CLINICAL INFORMATION: multiple seizures. COMPARISON: None available. FINDINGS: BRAIN/INTRACRANIAL STRUCTURES: Unenhanced CT images of the brain were obtained. There is no evidence of acute abnormality. Atrophic changes are present in the left parietal lobe, associated with some ex vacuo dilatation of the left trigone. This has a chronic appearance, and may be due to prior ischemic or traumatic injury, or developmental anomaly. There is no evidence of acute ischemic injury, hemorrhage, or mass. There are no abnormal extra- axial fluid collections. EXTRACRANIAL STRUCTURES: Unremarkable. IMPRESSION: No evidence of acute abnormality. Chronic cortical atrophic changes and left parietal lobe. All CT scans at this location are performed using dose reduction to ALARA by means of automated exposure control. Signer Name: Ernie Wilson MD Signed: 02/08/2021 2:10 PM Workstation Name: [id number] Transcribed By: AO Dictated By: Ernie Wilson MD Electronically Authenticated By: Ernie Wilson MD Signed Date/Time: 02/08/21 1410 DD/ 1407 Critical care attestation.: If time is entered above; I have spent that time in minutes in the direct care of this critically ill patient, excluding procedure time. ED Disposition Clinical Impression: Bacteriuria with pyuria, Seizures, History of cerebral palsy Disposition: DC-01 TO HOME OR SELFCARE Is pt being admited?: No Does the pt Need Aspirin: No Condition: Good Instructions: Seizure, Adult, [id number] Additional Instructions: DriverPlease continue current outpatient medications. Operate motor vehicles for the next 6 months, or until cleared to do so by a primary care doctor or neurologist. Urine cultures were sent today, and results will be available in the next 3 to 5 days. Please have your primary care doctor or neurologist contact the medical records department to follow-up on culture results. Please have your primary care doctor or neurologist contact medical records department to obtain copies of medical chart, laboratory studies, radiology studies, and follow-up on nonemergent incidental findings. Please continue current seizure medications. Please contact your neurologist first thing in the morning, February 09, 2021, to arrange outpatient visit, to have current seizure medications adjusted/change, if your primary neurologist deems it necessary. Please return to the emergency room right away with new pain, worsened pain, migration of pain, projectile vomiting, change in mental status, confusion, inability to tolerate liquid feeds, new, worsened or different symptoms not present on the initial emergency room evaluation. Avoid consumption of alcohol, tobacco and smoke products. Referrals: BLAZE SOLITARIO MD [Primary Care Provider] - 3-5 Days
[2021-02-08] MEDS ORDERED: TOPIRAMATE TAB 100 MG TAB PO STA (16:44)
[2021-02-08 18:05] LABS: Bacteria,Urine 1+ /HPF (Negative); Bilirubin,Urine NEG (Negative); Blood,Urine NEG (Negative); Color,Urine Straw (Yellow); Protein,Urine <15 mg/dL mg/dL (Negative); Urobilinogen,Urine < 2.0 mg/dL (<2.0)
[2021-02-08] MEDS ORDERED: NITROFURANTOIN MONOHYD/M-CRYST 100 MG CAP PO ONE (18:52)
[2021-02-08 20:29] VITALS: BP 134/76
--- NOTE | 2021-02-09 10:50 | Electrocardiograph Report ---
[facility] Test Date: 2021-02-08 Test Time: 17:00:49 Pat Name: FLORENCE RAMOS Department: Room: Gender: F Nonprofit Director: TV : 1960 Requested By: BILLY JOHNSON Order Number: [id number] Reading MD: Brandon Oakes Measurements Intervals [facility] Rate: 82 P: 48 IA: 176 QRS: -20 QRSD: 86 T: 45 QT: 386 QTc: 451 Interpretive Statements Sinus rhythm Probable left atrial enlargement nonspecific st-t No previous ECG available for comparison Electronically Signed On 02-09-2021 10:50:22 EDT by Brandon Oakes
== END 2021-02-08 20:29 | disposition home or self-care (01) ==
LOC: ED 12:56
DX: R56.9 Unspecified convulsions (principal); R82.71 Bacteriuria; R82.81 Pyuria; G80.9 Cerebral palsy, unspecified; Z79.899 Other long term (current) drug therapy
CPT/HCPCS: 36415; 70450; 80053; 80185; 81001; 82550; 83735; 85025; 93005; 96374; 99284; J1953; 80320; 96365; G0480

== ENCOUNTER 2021-04-02 19:08 | Emergency (ER) | payer MEDICAID ==
--- NOTE | 2021-04-02 21:58 | Emergency Department Report ---
ED Psych HPI - General Chief Complaint: Psych Stated Complaint: HEARING VOICES, SEEING THINGS Time Seen by Provider: 04/02/21 21:32 Source: family Mode of arrival: Ambulatory - History of Present Illness Initial Comments: Patient is a 61-year-old F [place]ian female with past medical history of seizure disorder who is currently in a longterm type facility. Patient for the last week his had some abnormal behavior. She has been complaining that she swallowed a fishbone and it moved from her stomach to her eyes and into her brain. States is continue to move around and she needs to be checked out. According to the caregiver who is here in emergency department patient has never had these type of complaints in the past. She also has been noted to be responding to internal stimuli may be hearing some auditory hallucinations. No history of any suicidal homicidal ideations. - Related Data Home Medications Medication Instructions Recorded Confirmed Last Taken Ascorbic Acid [Vitamin C] 500 mg PO QDAY 02/08/21 02/08/21 Unknown AtorvaSTATin [Lipitor] 10 mg PO QHS 02/08/21 02/08/21 Unknown Calcium Carbonate/Vitamin D3 1 each PO QDAY 02/08/21 02/08/21 Unknown [Os-Jhony 500+D3 Caplet] Cholecalciferol (Vitamin D3) 2,000 unit PO QDAY 02/08/21 02/08/21 Unknown [Vitamin D3 2,000 UNIT CAP] Phenytoin [Dilantin] 200 mg PO QHS 02/08/21 02/08/21 Unknown Topiramate [Topamax] 200 mg PO BID 02/08/21 02/08/21 Unknown Zinc [Zinc 50mg TAB] 50 mg PO QDAY 02/08/21 02/08/21 Unknown levETIRAcetam [Keppra TAB] 750 mg PO BID 02/08/21 02/08/21 Unknown Previous Rx's Medication Instructions Recorded Last Taken Type Nitrofurantoin Davie/M-Cryst 100 mg PO Q12HR #13 capsule 02/08/21 Unknown Rx [Macrobid CAP] Allergies Allergy/AdvReac Type Severity Reaction Status Date / Time No Known Allergies Allergy Verified 07/06/20 00:45 ED Review of Systems ROS: Stated complaint: HEARING VOICES, SEEING THINGS Other details as noted in HPI Comment: All other systems reviewed and negative ED Past Medical Hx - Past Medical History Previous Medical History?: No Hx Seizures: Yes - Surgical History Past Surgical History?: No - Medications Home Medications: Home Medications Medication Instructions Recorded Confirmed Last Taken Type Ascorbic Acid [Vitamin C] 500 mg PO QDAY 02/08/21 02/08/21 Unknown History AtorvaSTATin [Lipitor] 10 mg PO QHS 02/08/21 02/08/21 Unknown History Calcium Carbonate/Vitamin D3 1 each PO QDAY 02/08/21 02/08/21 Unknown History [Os-Jhony 500+D3 Caplet] Cholecalciferol (Vitamin D3) 2,000 unit PO QDAY 02/08/21 02/08/21 Unknown History [Vitamin D3 2,000 UNIT CAP] Nitrofurantoin Davie/M-Cryst 100 mg PO Q12HR #13 capsule 02/08/21 Unknown Rx [Macrobid CAP] Phenytoin [Dilantin] 200 mg PO QHS 02/08/21 02/08/21 Unknown History Topiramate [Topamax] 200 mg PO BID 02/08/21 02/08/21 Unknown History Zinc [Zinc 50mg TAB] 50 mg PO QDAY 02/08/21 02/08/21 Unknown History levETIRAcetam [Keppra TAB] 750 mg PO BID 02/08/21 02/08/21 Unknown History ED Physical Exam - General Limitations: Language Barrier General appearance: alert, in no apparent distress - Head Head exam: Present: atraumatic, normocephalic - Eye Eye exam: Present: normal appearance - ENT ENT exam: Present: normal exam, mucous membranes moist - Neck Neck exam: Present: normal inspection - Respiratory Respiratory exam: Present: normal lung sounds bilaterally. Absent: respiratory distress, wheezes, rales, rhonchi - Cardiovascular Cardiovascular Exam: Present: regular rate, normal rhythm, normal heart sounds. Absent: systolic murmur, diastolic murmur, rubs, gallop - GI/Abdominal GI/Abdominal exam: Present: soft, normal bowel sounds. Absent: distended, tenderness, guarding, rebound, rigid - Extremities Exam Extremities exam: Present: normal inspection - Back Exam Back exam: Present: normal inspection - Neurological Exam Neurological exam: Present: alert, altered, CN II-XII intact. Absent: motor sensory deficit - Psychiatric Psychiatric exam: Present: normal affect, normal mood, other (Patient very repetitive and is difficult to keep her on topic.) - Skin Skin exam: Present: warm, dry, intact, normal color. Absent: rash ED Course Vital Signs 04/02/21 04/02/21 04/03/21 19:19 22:00 01:32 Temperature 98.4 F 97.6 F Pulse Rate 91 H 93 H Respiratory 17 18 18 Rate Blood Pressure 134/81 Blood Pressure 122/82 [Right] O2 Sat by Pulse 96 98 95 Oximetry 04/03/21 04/03/21 04/04/21 07:58 20:14 01:43 Temperature 97.8 F 97.9 F 97.9 F Pulse Rate 96 H 78 79 Respiratory 18 16 18 Rate Blood Pressure 137/77 Blood Pressure 116/71 113/68 [Right] O2 Sat by Pulse 98 97 96 Oximetry 04/04/21 04/04/21 04/04/21 08:06 20:30 23:54 Temperature 98.0 F 98.0 F Pulse Rate 90 84 Respiratory 18 20 20 Rate Blood Pressure Blood Pressure 143/80 131/77 [Right] O2 Sat by Pulse 97 98 98 Oximetry 04/05/21 11:25 Temperature 98.9 F Pulse Rate 73 Respiratory 18 Rate Blood Pressure Blood Pressure 133/83 [Right] O2 Sat by Pulse 99 Oximetry - Reevaluation(s) Reevaluation #1: 04/27/21 22:48 Psychiatry Progress Note Patient Name: FLORENCE RAMOS Date of : 1960 Patient Status: Emergency Emergency Provider: ZOLTAN LICEA Date: 04/05/21 11:32 Initialization Date: 04/05/21 11:32 Subjective - Reason for Consult Consult date: 04/05/21 Reason for consult: Psychosis - Chief Complaint Chief complaint: The patient was seen resting quietly. She reports doing well. She reports sleep and appetite as good. The patient denies any current suicidal ideation and denies hallucinations. REVIEW OF SYSTEMS Constitutional: Negative for weight loss ENT: Negative for stridor Respiratory: Negative for cough or hemoptysis All other systems reviewed and are negative MENTAL STATUS EXAMINATION General Appearance and Behavior: Age appropriate, dressed appropriately, calm and cooperative Cooperation: Participating Psychomotor Behavior: psychomotor normal Mood: calm Affect and affective range: Congruent with stated mood Thought Process: Blocking Thought Content: Impoverished Speech: Normal volume, Regular rate and rhythm, Intellectual Functioning: Average Suicidal Ideation: Denied Homicidal Ideation: Denied Hallucinations: Denied Delusions: None elicited Impulse Control: Unimpaired Insight and Judgment: Limited insight and judgment, Memory: Impaired Attention: Undivided Orientation: Alert, oriented Diagnoses: Schizophrenia-F20.9 Treatment Plan: Continue home medications. Assessment and Plan Do not recommend acute inpatient psychiatric hospitalization at this time. Patient was informed that if suicidal/homicidal ideation/withdrawal symptoms arise, He should immediately seek for emergent assistance including but not limited to crisis hot line and emergency room. The recording studio set up worker to give the patient resources for a snf, transportation pass, CBT, med management and alcohol rehab programs The patient to follow up with outpatient psych in 7 to 14 days upon discharge The patient to abstain from alcohol use FOLLOW-UP: Will sign off Thank you for the consult. Please contact with any questions and/or concerns. Case staffed with Dr. Polo CAREY Medical Decision Making - Lab Data Result diagrams: 04/02/21 21:51 04/02/21 21:51 Lab Results 04/02/21 04/02/21 04/02/21 Range/Units 21:25 21:25 21:51 WBC 7.1 (4.5-11.0) K/mm3 RBC 4.49 (3.65-5.03) M/mm3 Hgb 14.2 (10.1-14.3) gm/dl Hct 42.0 (30.3-42.9) % MCV 93 (79-97) fl MCH 32 (28-32) pg MCHC 34 (30-34) % RDW 13.8 (13.2-15.2) % Plt Count 189 (140-440) K/mm3 Lymph % (Auto) 34.3 (13.4-35.0) % Davie % (Auto) 8.7 H (0.0-7.3) % Eos % (Auto) 1.2 (0.0-4.3) % Baso % (Auto) 0.4 (0.0-1.8) % Lymph # (Auto) 2.4 (1.2-5.4) K/mm3 Davie # (Auto) 0.6 (0.0-0.8) K/mm3 Eos # (Auto) 0.1 (0.0-0.4) K/mm3 Baso # (Auto) 0.0 (0.0-0.1) K/mm3 Seg Neutrophils % 55.4 (40.0-70.0) % Seg Neutrophils # 3.9 (1.8-7.7) K/mm3 Sodium (137-145) mmol/L Potassium (3.6-5.0) mmol/L Chloride (98-107) mmol/L Carbon Dioxide (22-30) mmol/L Anion Gap mmol/L BUN (7-17) mg/dL Creatinine (0.6-1.2) mg/dL Estimated GFR ml/min BUN/Creatinine Ratio % Glucose (65-100) mg/dL Calcium (8.4-10.2) mg/dL Urine Color Yellow (Yellow) Urine Turbidity Slightly-cloudy (Clear) Urine pH 6.0 (5.0-7.0) Ur Specific [place]on 1.018 (1.003-1.030) Urine Protein <15 mg/dl (Negative) mg/dL Urine Glucose (UA) Neg (Negative) mg/dL Urine Ketones Neg (Negative) mg/dL Urine Blood Neg (Negative) Urine Nitrite Neg (Negative) Urine Bilirubin Neg (Negative) Urine Urobilinogen < 2.0 (<2.0) mg/dL Ur Leukocyte Esterase Neg (Negative) Urine WBC (Auto) 5.0 (0.0-6.0) /HPF Urine RBC (Auto) 1.0 (0.0-6.0) /HPF U Epithel Cells (Auto) 19.0 H (0-13.0) /HPF Urine Bacteria (Auto) 1+ (Negative) /HPF Urine Mucus Few /HPF Salicylates (2.8-20.0) mg/dL Urine Opiates Screen Presumptive negative Urine Methadone Screen Presumptive negative Acetaminophen (10.0-30.0) ug/mL Ur Barbiturates Screen Presumptive negative Phenytoin (10.0-20.0) ug/mL Ur Phencyclidine Scrn Presumptive negative Ur Amphetamines Screen Presumptive negative U Benzodiazepines Scrn Presumptive negative Urine Cocaine Screen Presumptive negative U Marijuana (THC) Screen Presumptive negative Drugs of Abuse Note Disclamer 04/02/21 04/02/21 04/02/21 Range/Units 21:51 21:51 21:51 WBC (4.5-11.0) K/mm3 RBC (3.65-5.03) M/mm3 Hgb (10.1-14.3) gm/dl Hct (30.3-42.9) % MCV (79-97) fl MCH (28-32) pg MCHC (30-34) % RDW (13.2-15.2) % Plt Count (140-440) K/mm3 Lymph % (Auto) (13.4-35.0) % Davie % (Auto) (0.0-7.3) % Eos % (Auto) (0.0-4.3) % Baso % (Auto) (0.0-1.8) % Lymph # (Auto) (1.2-5.4) K/mm3 Davie # (Auto) (0.0-0.8) K/mm3 Eos # (Auto) (0.0-0.4) K/mm3 Baso # (Auto) (0.0-0.1) K/mm3 Seg Neutrophils % (40.0-70.0) % Seg Neutrophils # (1.8-7.7) K/mm3 Sodium 142 (137-145) mmol/L Potassium 3.9 (3.6-5.0) mmol/L Chloride 107.3 H (98-107) mmol/L Carbon Dioxide 23 (22-30) mmol/L Anion Gap 16 mmol/L BUN 15 (7-17) mg/dL Creatinine 0.5 L (0.6-1.2) mg/dL Estimated GFR > 60 ml/min BUN/Creatinine Ratio 30 % Glucose 105 H (65-100) mg/dL Calcium 9.0 (8.4-10.2) mg/dL Urine Color (Yellow) Urine Turbidity (Clear) Urine pH (5.0-7.0) Ur Specific Easton (1.003-1.030) Urine Protein (Negative) mg/dL Urine Glucose (UA) (Negative) mg/dL Urine Ketones (Negative) mg/dL Urine Blood (Negative) Urine Nitrite (Negative) Urine Bilirubin (Negative) Urine Urobilinogen (<2.0) mg/dL Ur Leukocyte Esterase (Negative) Urine WBC (Auto) (0.0-6.0) /HPF Urine RBC (Auto) (0.0-6.0) /HPF U Epithel Cells (Auto) (0-13.0) /HPF Urine Bacteria (Auto) (Negative) /HPF Urine Mucus /HPF Salicylates < 0.3 L (2.8-20.0) mg/dL Urine Opiates Screen Urine Methadone Screen Acetaminophen 5.0 L (10.0-30.0) ug/mL Ur Barbiturates Screen Phenytoin 31.7 H (10.0-20.0) ug/mL Ur Phencyclidine Scrn Ur Amphetamines Screen U Benzodiazepines Scrn Urine Cocaine Screen U Marijuana (THC) Screen Drugs of Abuse Note - Radiology Data [facility] [address] [place] [address] Cat Scan Report Signed Patient: FLORENCE RAMOS MR#: [id number] 25 : 1960 Acct:[id number] Age/Sex: 61 / F ADM Date: 04/02/21 Loc: ED Attending Dr: Ordering Physician: ZOLTAN LICEA MD Date of Service: 04/02/21 Procedure(s): CT head/brain wo con Accession Number(s): [id number] cc: ZOLTAN LICEA MD CT HEAD WITHOUT CONTRAST INDICATION / CLINICAL INFORMATION: New abnormal behavior. TECHNIQUE: All CT scans at this location are performed using CT dose reduction for ALARA by means of automated exposure control. COMPARISON: CT from 02/08/2021 FINDINGS: BRAIN PARENCHYMA: No acute intracranial hemorrhage. No evidence of recent infarct. No mass effect or midline shift. 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 VENTRICULAR SYSTEM/EXTRA-AXIAL SPACES: There is ex vacuo dilatation of the left lateral ventricle occipital and temporal horn. No new or increasing hydrocephalus. No extra-axial fluid collection is identified. ORBITS: Normal as visualized. SKELETAL SYSTEM/SOFT TISSUES: Normal bones and soft tissues. PARANASAL SINUSES/MASTOID AIR CELLS: No significant abnormality. ADDITIONAL FINDINGS: None. IMPRESSION: 1. No acute intracranial abnormality. 2. Stable chronic ischemic changes, as above. Signer Name: Clifford Yoder MD Signed: 04/02/2021 11:45 PM Workstation Name: [id number] - Medical Decision Making Outside of elevation of the patient's Dilantin level above the therapeutic range the patient is medically cleared at this time. Patient to have her Dilantin dose held for the next 24 hours. She is stable to see psychiatry team. The elevated Dilantin levels do not explain the patient's recent psychosis. Critical care attestation.: If time is entered above; I have spent that time in minutes in the direct care of this critically ill patient, excluding procedure time. ED Disposition Clinical Impression: Psychosis, Auditory hallucinations, Schizophrenia Disposition: DC-01 TO HOME OR SELFCARE Is pt being admited?: No Condition: Stable Instructions: Schizophrenia, Managing Schizophrenia Additional Instructions: Please follow-up in 7 to 14 days using the following outpatient resources. Return to the emergency department should you develop thoughts of hurting yourself or others, or any other new concerns. Continue to take all of your medications as prescribed. OUTPATIENT MENTAL HEALTH RESOURCES [facility], [facility] Felisha Field MD: [address] [place] [address] [place], [place] [id number] [facility]: [facility] [address] [place] [address] [place] [address] [phone] [facility]: [facility]: [address] [facility] [address] [facility] [place] [address] [facility] [address] [facility]: Sly Adorno MD: [id number] [facility] [address] [facility] [id number] [facility]: [address] [place], [place] [id number] [phone] [place] CRISIS AND ACCESS LINE: Referrals: PRIMARY CAREMD [Primary Care Provider] - 3-5 Days
[2021-04-02 22:17] LABS: Amphetamine Screen,Urine PRESUMPTIVE NEGATIVE; Benzodiazepines Screen,Urine PRESUMPTIVE NEGATIVE; Cannabinoid Screen,Urine PRESUMPTIVE NEGATIVE; Cocaine Screen,Urine PRESUMPTIVE NEGATIVE; Methadone Screen,Urine PRESUMPTIVE NEGATIVE; Opiate Screen,Urine PRESUMPTIVE NEGATIVE
[2021-04-02 22:18] LABS: Bacteria,Urine 1+ /HPF (Negative); Bilirubin,Urine NEG (Negative); Blood,Urine NEG (Negative); Color,Urine Yellow (Yellow); Mucus,Urine FEW /HPF; Protein,Urine <15 mg/dL mg/dL (Negative); Urobilinogen,Urine < 2.0 mg/dL (<2.0)
[2021-04-02 22:30] LABS: Blood Urea Nitrogen 15 mg/dL (7-17); Hemolysis Index 7
[2021-04-02 22:33] LABS: BUN/Creatinine Ratio 30
[2021-04-02 22:45] LABS: Basophils % (Auto) 0.4 % (0.0-1.8); Eosinophils # (Auto) 0.1 K/mm3 (0.0-0.4); Eosinophils % (Auto) 1.2 % (0.0-4.3); Hemoglobin 14.2 gm/dl (10.1-14.3); Lymphocytes # (Auto) 2.4 K/mm3 (1.2-5.4); Lymphocytes % (Auto) 34.3 % (13.4-35.0); Mean Corpuscular HGB Conc 34 % (30-34); Mean Corpuscular Volume 93 fl (79-97); Monocytes # (Auto) 0.6 K/mm3 (0.0-0.8); Monocytes % (Auto) 8.7 % (0.0-7.3); Platelet Count 189 K/mm3 (140-440); Red Blood Count 4.49 M/mm3 (3.65-5.03); Red Cell Distribution Width 13.8 % (13.2-15.2)
--- NOTE | 2021-04-02 23:49 | Cat Scan Report ---
CT HEAD WITHOUT CONTRAST INDICATION / CLINICAL INFORMATION: New abnormal behavior. TECHNIQUE: All CT scans at this location are performed using CT dose reduction for ALARA by means of automated exposure control. COMPARISON: CT from 02/08/2021 FINDINGS: BRAIN PARENCHYMA: No acute intracranial hemorrhage. No evidence of recent infarct. No mass effect or midline shift. 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 VENTRICULAR SYSTEM/EXTRA-AXIAL SPACES: There is ex vacuo dilatation of the left lateral ventricle occ ipital and temporal horn. No new or increasing hydrocephalus. No extra-axial fluid collection is iden tified. ORBITS: Normal as visualized. SKELETAL SYSTEM/SOFT TISSUES: Normal bones and soft tissues. PARANASAL SINUSES/MASTOID AIR CELLS: No significant abnormality. ADDITIONAL FINDINGS: None. IMPRESSION: 1. No acute intracranial abnormality. 2. Stable chronic ischemic changes, as above. Signer Name: Clifford Yoder MD Signed: 04/02/2021 11:45 PM Workstation Name: [id number]
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
--- NOTE | 2021-04-03 10:29 | Emergency Department Report ---
Blank Doc - Documentation Documentation: Patient has been seen by the psychiatric team and they have suggested inpatient therapy for the patient. There have been no new events overnight.
[2021-04-03] MEDS: levETIRAcetam 500 MG/5 ML ORAL LIQD PO SCH ×2 (10:38→22:23)
[2021-04-03] MEDS: TOPIRAMATE TAB 200 MG TAB PO SCH ×2 (10:38→22:23)
--- NOTE | 2021-04-04 10:44 | Event Note ---
Date: 04/04/21 61-year-old female with history of schizophrenia who presented with acute psychosis and paranoia. She was seen by my colleague and was medically cleared for psychiatric evaluation and placement. Vital signs are stable. There were no acute events overnight. She was restarted on her home Keppra and Topamax. She is currently awaiting inpatient psychiatric facility placement.
[2021-04-04] MEDS: TOPIRAMATE TAB 200 MG TAB PO SCH ×2 (11:43→23:33)
[2021-04-04] MEDS: levETIRAcetam 500 MG/5 ML ORAL LIQD PO SCH ×2 (11:43→23:33)
--- NOTE | 2021-04-04 14:01 | Progress Note ---
Subjective - Reason for Consult Consult date: 04/04/21 Reason for consult: mental health eval - Chief Complaint Chief complaint: The patient was seen resting quietly. She continues to be disorganized and confused. REVIEW OF SYSTEMS PAST PSYCHIATRIC HISTORY: Diagnoses: Schizophrenia, Intellectual disability Suicide attempts or Self-harm behavior: unknown Prior psychiatric hospitalizations: Yes Substance Abuse history: unknown Previous psychiatric medications tried: Invega Sustenna, Topamax Outpatient treatment: Denies PAST MEDICAL HISTORY: Seizures Family Psychiatric History: None reported or documented SOCIAL HISTORY- Unable to assess REVIEW OF SYSTEMS- Unable to assess MENTAL STATUS EXAMINATION- Unable to assess Diagnoses: Schizophrenia- F20.9 Treatment Plan Continue Home Medications PSYCHOTHERAPY: Supportive psychotherapy provided MEDICAL: Per primary team DELIRIUM PRECAUTIONS: Please re-orient patient frequently, keep lights on during the day, and minimize benzodiazepines and opiates as these medications could worsen patient's confusion. VISUAL COMMUNICATIONS INSTRUCTOR: Per medical team DISPOSITION: Recommend acute psychiatric inpatient treatment Will follow. Please contact with any questions and/or concerns. Thank you for the consult. Case staffed with Dr. Cuellar Mental Status Exam - Vital signs Last Vital Signs Temp 98.0 F 04/04/21 08:06 Pulse 90 04/04/21 08:06 Resp 18 04/04/21 08:06 BP 143/80 04/04/21 08:06 Pulse Ox 97 04/04/21 08:06
[2021-04-05 11:26] VITALS: BP 133/83
--- NOTE | 2021-04-05 11:36 | Progress Note ---
Subjective - Reason for Consult Consult date: 04/05/21 Reason for consult: Psychosis - Chief Complaint Chief complaint: The patient was seen resting quietly. She reports doing well. She reports sleep and appetite as good. The patient denies any current suicidal ideation and denies hallucinations. REVIEW OF SYSTEMS Constitutional: Negative for weight loss ENT: Negative for stridor Respiratory: Negative for cough or hemoptysis All other systems reviewed and are negative MENTAL STATUS EXAMINATION General Appearance and Behavior: Age appropriate, dressed appropriately, calm and cooperative Cooperation: Participating Psychomotor Behavior: psychomotor normal Mood: calm Affect and affective range: Congruent with stated mood Thought Process: Blocking Thought Content: Impoverished Speech: Normal volume, Regular rate and rhythm, Intellectual Functioning: Average Suicidal Ideation: Denied Homicidal Ideation: Denied Hallucinations: Denied Delusions: None elicited Impulse Control: Unimpaired Insight and Judgment: Limited insight and judgment, Memory: Impaired Attention: Undivided Orientation: Alert, oriented Diagnoses: Schizophrenia-F20.9 Treatment Plan: Continue home medications. Assessment and Plan Do not recommend acute inpatient psychiatric hospitalization at this time. Patient was informed that if suicidal/homicidal ideation/withdrawal symptoms arise, He should immediately seek for emergent assistance including but not limited to crisis hot line and emergency room. The box blank machine operator to give the patient resources for a [place] [facility], transportation pass, CBT, med management and alcohol rehab programs The patient to follow up with outpatient psych in 7 to 14 days upon discharge The patient to abstain from alcohol use FOLLOW-UP: Will sign off Thank you for the consult. Please contact with any questions and/or concerns. Case staffed with Dr. Cuellar Mental Status Exam - Vital signs Last Vital Signs Temp 98.9 F 04/05/21 11:25 Pulse 73 04/05/21 11:25 Resp 18 04/05/21 11:25 BP 133/83 04/05/21 11:25 Pulse Ox 99 04/05/21 11:25
[2021-04-05] MEDS: levETIRAcetam 500 MG/5 ML ORAL LIQD PO SCH (12:06)
--- NOTE | 2021-04-05 13:32 | Event Note ---
Date: 04/05/21 61-year-old female with history of schizophrenia who presented with acute psychosis and paranoia. She was seen by my colleague and was medically cleared for psychiatric evaluation and placement. Initially, the psychiatry/mental health team recommended further inpatient treatment. However, she was seen today by the psychiatry/mental health team and they feel that she is no longer with acute psychosis and should be discharged home with outpatient resources for follow-up. Vital signs are stable. There were no acute events overnight. We w ill thus discharge the patient with the appropriate resources and return precautions.
== END 2021-04-05 15:29 | disposition home or self-care (01) ==
LOC: EEVIPCON 19:08 → ED 19:08
DX: R44.0 Auditory hallucinations (principal); R44.1 Visual hallucinations; Z20.822 Contact with and (suspected) exposure to COVID-19; Z79.899 Other long term (current) drug therapy
CPT/HCPCS: 36415; 70450; 80048; 80185; 80307; 81001; 85025; 99285; U0003; 80320; G0480

== ENCOUNTER 2021-06-28 16:00 | Emergency (ER) | payer MEDICAID ==
[2021-06-28 16:14] VITALS: BP 142/84
--- NOTE | 2021-06-28 17:20 | Emergency Department Report ---
ED General Adult HPI - General Chief complaint: Extremity Injury, Lower Stated complaint: [facility]OT INJURY AT [facility] Time Seen by Provider: 06/28/21 16:57 Source: patient Mode of arrival: Wheelchair Limitations: No Limitations - History of Present Illness Initial comments: 61-year-old female patient presents to the emergency department with complaints of traumatic right foot pain status post mechanical fall. Patient sustained a ground level fall from a standing position at the [facility]. There was no resulting head injury or loss of consciousness. Denies headache, neck pain, hip pain, knee pain, paresthesias, numbness, weakness. Denies all other complaints at this time. - Related Data Home Medications Medication Instructions Recorded Confirmed Last Taken Ascorbic Acid [Vitamin C] 500 mg PO QDAY 02/08/21 02/08/21 Unknown AtorvaSTATin [Lipitor] 10 mg PO QHS 02/08/21 02/08/21 Unknown Calcium Carbonate/Vitamin D3 1 each PO QDAY 02/08/21 02/08/21 Unknown [Os-Jhony 500+D3 Caplet] Cholecalciferol (Vitamin D3) 2,000 unit PO QDAY 02/08/21 02/08/21 Unknown [Vitamin D3 2,000 UNIT CAP] Phenytoin [Dilantin] 200 mg PO QHS 02/08/21 02/08/21 Unknown Topiramate [Topamax] 200 mg PO BID 02/08/21 02/08/21 Unknown Zinc [Zinc 50mg TAB] 50 mg PO QDAY 02/08/21 02/08/21 Unknown levETIRAcetam [Keppra TAB] 750 mg PO BID 02/08/21 02/08/21 Unknown Previous Rx's Medication Instructions Recorded Last Taken Type Nitrofurantoin Yancey/M-Cryst 100 mg PO Q12HR #13 capsule 02/08/21 Unknown Rx [Macrobid CAP] Naproxen 500 mg PO BID #20 tablet 06/28/21 Unknown Rx Allergies Allergy/AdvReac Type Severity Reaction Status Date / Time No Known Allergies Allergy Verified 07/06/20 00:45 ED Review of Systems ROS: Stated complaint: RT FOOT INJURY AT [facility] CENTER Other details as noted in HPI Other: CARDIOVASCULAR: Negative for chest pain. PULMONARY: Negative for dyspnea. GASTROINTESTINAL: Negative for abdominal pain. MUSCULOSKELETAL: Positive for right foot pain. NEUROLOGICAL: Negative for headache. INTEGUMENTARY: Negative for ecchymosis. ED Past Medical Hx - Past Medical History Previous Medical History?: Yes Hx Seizures: Yes - Surgical History Past Surgical History?: No - Social History Smoking Status: Never Smoker Substance Use Type: None - Medications Home Medications: Home Medications Medication Instructions Recorded Confirmed Last Taken Type Ascorbic Acid [Vitamin C] 500 mg PO QDAY 02/08/21 02/08/21 Unknown History AtorvaSTATin [Lipitor] 10 mg PO QHS 02/08/21 02/08/21 Unknown History Calcium Carbonate/Vitamin D3 1 each PO QDAY 02/08/21 02/08/21 Unknown History [Os-Jhony 500+D3 Caplet] Cholecalciferol (Vitamin D3) 2,000 unit PO QDAY 02/08/21 02/08/21 Unknown History [Vitamin D3 2,000 UNIT CAP] Nitrofurantoin Yancey/M-Cryst 100 mg PO Q12HR #13 capsule 02/08/21 Unknown Rx [Macrobid CAP] Phenytoin [Dilantin] 200 mg PO QHS 02/08/21 02/08/21 Unknown History Topiramate [Topamax] 200 mg PO BID 02/08/21 02/08/21 Unknown History Zinc [Zinc 50mg TAB] 50 mg PO QDAY 02/08/21 02/08/21 Unknown History levETIRAcetam [Keppra TAB] 750 mg PO BID 02/08/21 02/08/21 Unknown History Naproxen 500 mg PO BID #20 tablet 06/28/21 Unknown Rx ED Physical Exam - General Limitations: No Limitations - Other Other exam information: General: Awake, appropriately interactive, no acute distress. Neck: Supple. Full range of motion intact. Cardiovascular: Normal peripheral perfusion. Pulmonary: No respiratory distress. Patient is speaking normally without use of accessory muscles. Skin: No apparent rashes or lesions. Neurological: No facial asymmetry. Speech is clear. Follows commands. Patient is alert and oriented. Musculoskeletal: Tenderness to palpation throughout the dorsum of the right foot without obvious deformity or dislocation. No plantar ecchymosis. Minimal bilateral malleolar tenderness. Venegas test is negative. Distal neurovascular and motor/sensory function intact. Psych: Cooperative. Appropriate mood and affect. ED Course Vital Signs 06/28/21 06/28/21 16:00 16:12 Temperature 98.3 F Pulse Rate 89 Respiratory 16 Rate Blood Pressure 142/84 [Left] O2 Sat by Pulse 98 Oximetry ED Medical Decision Making - Radiology Data [address] [address] XRay Report Signed Patient: FLORENCE RAMOS MR#: [id number] 25 : 1960 Acct:[id number] Age/Sex: 61 / F ADM Date: 06/28/21 Loc: ED Attending Dr: Ordering Physician: MARTHA JOHNSON Date of Service: 06/28/21 Procedure(s): XR foot 3+V RT Accession Number(s): [id number] cc: MARTHA JOHNSON Fluoro Time In Minutes: Right foot 3 views INDICATION: Trauma FINDINGS: Degenerative changes great toe MTP joint and IP joint. Degenerative changes seen throughout the midfoot. Degenerative change in the ankle joint and talonavicular joint with prominent osteophyte. IMPRESSION: Degenerative changes seen throughout the foot. Diffuse soft tissue swelling within the ankle. Loss of subtalar space with degenerative change. No displaced fracture however if there is high clinical concern a CT could be performed. Signer Name: Vick Kirkpatrick MD Signed: 06/28/2021 5:40 PM Workstation Name: [id number] Transcribed By: CW Dictated By: JONELLE KIRKPATRICK MD Electronically Authenticated By: JONELLE KIRKPATRICK MD Signed Date/Time: 06/28/211739 DD/ 38 TD/TT: [address] [address] Cat Scan Report Signed Patient: FLORENCE RAMOS MR#: [id number] [birth year] : 1960 Acct:[id number] Age/Sex: 61 / F ADM Date: 06/28/21 Loc: ED Attending Dr: Ordering Physician: MARTHA JOHNSON Date of Service: 06/28/21 Procedure(s): CT lower extremity RT wo con Accession Number(s): [id number] cc: MARTHA JOHNSON CT RIGHT ANKLE WITHOUT CONTRAST INDICATION / CLINICAL INFORMATION: Trauma; X-ray nonspecific, rec CT for possible fx. TECHNIQUE: All CT scans at this location are performed using CT dose reduction for ALARA by means of automated exposure control. COMPARISON: Right ankle radiographs from earlier in the day FINDINGS: BONES: No acute fracture. No osseous lesion. There is post traumatic change to the medial malleolus as indicated by cortical margins and bulky osteophytosis. JOINT(S): There is moderate degeneration of the tibiotalar joint.. There is degeneration of the first metatarsophalangeal joint. No significant effusion. No intra-articular bodies. MUSCLES / TENDONS: No significant abnormality. SOFT TISSUES: No significant abnormality. ADDITIONAL FINDINGS: None. IMPRESSION: 1. No significant abnormality. Signer Name: Bentley Alvarez DO Signed: 06/28/2021 9:37 PM Workstation Name: [id number] Transcribed By: HANG Dictated By: BENTLEY ALVAREZ DO Electronically Authenticated By: BENTLEY ALVAREZ DO Signed Date/Time: 06/28/212136 DD/ 30 TD/TT: - Medical Decision Making Differential diagnosis including but not limited to: sprain, strain, fracture, contusion, dislocation On reevaluation, patient remains stable. Repeat neurovascular exam remains intact. X-rays of the ankle without acute process. X-rays of the foot were nondiagnostic; CT recommended for further evaluation of possible displaced fracture. CT of the lower extremity without acute process. History and exam findings consistent with sprain/strain. No clinical indication for further diagnostic work-up on an emergent basis at this time. Patient will be discharged home with Ricky wrap, crutches, appropriate analgesics, and referral to orthopedics for close outpatient follow-up. Patient expressed understanding and is agreeable to plan of care. RICE precautions discussed. Strict return precautions provided. Repeat exam is unremarkable and benign. History, exam, diagnostic testing, and current condition do not suggest worrisome pathology to warrant further testing, continued ED treatment, admission, or surgical evaluation at this point. Given the low probability of a significant medical illness, it would be more likely to result in harm than benefit to perform further testing at this stage. Discussed findings, presumptive diagnosis, need for follow-up and specific signs/symptoms that should prompt immediate return to the emergency department. Instructions were explained in detail to the patient in addition to giving written discharge information. Patient expressed understanding and was given the opportunity to ask questions, all of which were satisfactorily answered prior to discharge home. Critical care attestation.: If time is entered above; I have spent that time in minutes in the direct care of this critically ill patient, excluding procedure time. ED Disposition Clinical Impression: Right foot sprain Qualifiers: Encounter type: initial encounter Qualified Code(s): S93.601A - Unspecified sprain of right foot, initial encounter Disposition: HOME / SELF CARE / HOMELESS Is pt being admited?: No Does the pt Need Aspirin: No Condition: Stable Instructions: Elastic Bandage and RICE Therapy Additional Instructions: Take Tylenol every 4 hours as needed for pain. Take Naprosyn twice daily with food as needed for pain. Wear Ricky wrap as directed. Use crutches as needed. Keep right foot elevated as often as possible to reduce swelling. Follow-up with Dr. Santos, orthopedics, this week. Call tomorrow to schedule an appointment. See referral information below. Return to the emergency department immediately for new or worsening symptoms. Prescriptions: Naproxen 500 mg PO BID #20 tablet Referrals: CHATA SANTOS MD [Staff Physician] - 3-5 Days Time of Disposition: 22:11
--- NOTE | 2021-06-28 17:45 | XRay Report ---
Right foot 3 views INDICATION: Trauma FINDINGS: Degenerative changes great toe MTP joint and IP joint. Degenerative changes seen throughout the midfoot. Degenerative change in the ankle joint and talonavicular joint with prominent osteophyt e. IMPRESSION: Degenerative changes seen throughout the foot. Diffuse soft tissue swelling within the ankle. Loss of subtalar space with degenerative change. No displaced fracture however if there is high clinical con cern a CT could be performed. Signer Name: Vick Kirkpatrick MD Signed: 06/28/2021 5:40 PM Workstation Name: [id number]
--- NOTE | 2021-06-28 17:53 | XRay Report ---
Right ankle-3 views INDICATION: trauma. COMPARISON: None. IMPRESSION: No acute osseous abnormality. There is midfoot sag as well as advanced degenerative lynda nge along the medial ankle mortise and in the midfoot. Mild soft tissue swelling along the anterolate ral aspect of the ankle. Signer Name: Jared Espino MD Signed: 06/28/2021 5:48 PM Workstation Name: [id number]
--- NOTE | 2021-06-28 21:42 | Cat Scan Report ---
CT RIGHT ANKLE WITHOUT CONTRAST INDICATION / CLINICAL INFORMATION: Trauma; X-ray nonspecific, rec CT for possible fx. TECHNIQUE: All CT scans at this location are performed using CT dose reduction for ALARA by means of automated exposure control. COMPARISON: Right ankle radiographs from earlier in the day FINDINGS: BONES: No acute fracture. No osseous lesion. There is post traumatic change to the medial malleolus a s indicated by cortical margins and bulky osteophytosis. JOINT(S): There is moderate degeneration of the tibiotalar joint.. There is degeneration of the first metatarsophalangeal joint. No significant effusion. No intra-articular bodies. MUSCLES / TENDONS: No significant abnormality. SOFT TISSUES: No significant abnormality. ADDITIONAL FINDINGS: None. IMPRESSION: 1. No significant abnormality. Signer Name: Bentley Herrera DO Signed: 06/28/2021 9:37 PM Workstation Name: [id number]
== END 2021-06-28 23:23 | disposition home or self-care (01) ==
LOC: ED 16:00
DX: S93.601A Unspecified sprain of right foot, initial encounter (principal); W18.39XA Other fall on same level, initial encounter; Y93.89 Activity, other specified; Y92.210 Daycare center as the place of occurrence of the external cause; Y99.8 Other external cause status
CPT/HCPCS: 99284

== ENCOUNTER 2021-08-06 09:43 | Emergency (ER) | payer MEDICAID ==
--- NOTE | 2021-08-06 10:09 | Emergency Department Report ---
ED General Adult HPI - General Chief complaint: Altered Mental Status Stated complaint: FALL Time Seen by Provider: 08/06/21 10:01 Source: patient, EMS Mode of arrival: Stretcher Limitations: Other - History of Present Illness Initial comments: Patient is 61 years old female with history of cerebral palsy and seizure. Patient brought to the emergency room via EMS from a local residential for evaluation after a fall. Patient sustained a ground-level fall. EMS reported that the staff over there told him that she became a little bit slurred after the fall however upon arrival to the ER patient is alert, oriented x3 no acute distress with no evidence of slurred speech. Patient is moving all her extremities in no acute distress. Patient does not have any complaint now. She denied any headache, neck pain, chest pain, abdominal pain, shortness of breath, cough, fever or chills. -: Sudden, This morning Location: head Associated Symptoms: denies other symptoms - Related Data Home Medications Medication Instructions Recorded Confirmed Last Taken Ascorbic Acid [Vitamin C] 500 mg PO QDAY 02/08/21 02/08/21 Unknown AtorvaSTATin [Lipitor] 10 mg PO QHS 02/08/21 08/06/21 Unknown Calcium Carbonate/Vitamin D3 1 each PO QDAY 02/08/21 08/06/21 Unknown [Os-Jhony 500+D3 Caplet] Cholecalciferol (Vitamin D3) 2,000 unit PO QDAY 02/08/21 02/08/21 Unknown [Vitamin D3 2,000 UNIT CAP] Phenytoin [Dilantin] 200 mg PO QHS 02/08/21 08/06/21 Unknown Topiramate [Topamax] 200 mg PO BID 02/08/21 08/06/21 Unknown Zinc [Zinc 50mg TAB] 50 mg PO QDAY 02/08/21 08/06/21 Unknown levETIRAcetam [Keppra TAB] 750 mg PO BID 02/08/21 02/08/21 Unknown Previous Rx's Medication Instructions Recorded Last Taken Type Nitrofurantoin Milam/M-Cryst 100 mg PO Q12HR #13 capsule 02/08/21 Unknown Rx [Macrobid CAP] Naproxen 500 mg PO BID #20 tablet 06/28/21 Unknown Rx Allergies Allergy/AdvReac Type Severity Reaction Status Date / Time No Known Allergies Allergy Verified 07/06/20 00:45 ED Review of Systems ROS: Stated complaint: FALL Other details as noted in HPI Comment: All other systems reviewed and negative Constitutional: denies: chills, fever Respiratory: denies: cough, shortness of breath, SOB with exertion Cardiovascular: denies: chest pain, palpitations Gastrointestinal: denies: abdominal pain, nausea, vomiting Musculoskeletal: denies: back pain Neurological: denies: headache, weakness, numbness, paresthesias, confusion ED Past Medical Hx - Past Medical History Hx CVA: Yes Hx Seizures: Yes Hx Psychiatric Treatment: Yes (bipolar, schizo-effective) Additional medical history: cerebal palsy - Social History Smoking Status: Never Smoker Substance Use Type: None - Medications Home Medications: Home Medications Medication Instructions Recorded Confirmed Last Taken Type Ascorbic Acid [Vitamin C] 500 mg PO QDAY 02/08/21 02/08/21 Unknown History AtorvaSTATin [Lipitor] 10 mg PO QHS 02/08/21 08/06/21 Unknown History Calcium Carbonate/Vitamin D3 1 each PO QDAY 02/08/21 08/06/21 Unknown History [Os-Jhony 500+D3 Caplet] Cholecalciferol (Vitamin D3) 2,000 unit PO QDAY 02/08/21 02/08/21 Unknown History [Vitamin D3 2,000 UNIT CAP] Nitrofurantoin Milam/M-Cryst 100 mg PO Q12HR #13 capsule 02/08/21 Unknown Rx [Macrobid CAP] Phenytoin [Dilantin] 200 mg PO QHS 02/08/21 08/06/21 Unknown History Topiramate [Topamax] 200 mg PO BID 02/08/21 08/06/21 Unknown History Zinc [Zinc 50mg TAB] 50 mg PO QDAY 02/08/21 08/06/21 Unknown History levETIRAcetam [Keppra TAB] 750 mg PO BID 02/08/21 02/08/21 Unknown History Naproxen 500 mg PO BID #20 tablet 06/28/21 Unknown Rx ED Physical Exam - General Limitations: Other General appearance: alert, in no apparent distress - Head Head exam: Present: atraumatic, normocephalic, normal inspection - Eye Eye exam: Present: normal appearance - ENT ENT exam: Present: normal exam, normal orophraynx, mucous membranes moist - Neck Neck exam: Present: normal inspection, full ROM. Absent: tenderness, meningismus - Respiratory Respiratory exam: Present: normal lung sounds bilaterally - Cardiovascular Cardiovascular Exam: Present: regular rate, normal rhythm, normal heart sounds - GI/Abdominal GI/Abdominal exam: Present: soft, normal bowel sounds. Absent: distended, tenderness, guarding, rebound, rigid, organomegaly, mass, bruit, pulsatile mass, hernia - Extremities Exam Extremities exam: Present: normal inspection, full ROM, normal capillary refill. Absent: tenderness, pedal edema, joint swelling, calf tenderness - Neurological Exam Neurological exam: Present: alert, oriented X3. Absent: motor sensory deficit - Psychiatric Psychiatric exam: Present: anxious. Absent: agitated, homicidal ideation, suicidal ideation - Skin Skin exam: Present: warm, intact, normal color ED Course Vital Signs 08/06/21 08/06/21 08/06/21 09:49 10:06 10:24 Temperature 98.0 F Pulse Rate 92 H 86 Respiratory 20 23 40 H Rate Blood Pressure 146/78 Blood Pressure 150/92 [Right] O2 Sat by Pulse 98 96 Oximetry 08/06/21 08/06/21 08/06/21 10:30 10:34 10:45 Temperature Pulse Rate 89 86 87 Respiratory 17 20 36 H Rate Blood Pressure 141/79 136/86 Blood Pressure 141/79 [Right] O2 Sat by Pulse 95 98 98 Oximetry 08/06/21 08/06/21 08/06/21 11:00 11:15 11:30 Temperature 97.6 F Pulse Rate 89 85 87 Respiratory 33 H 32 H 47 H Rate Blood Pressure 146/78 136/81 144/81 Blood Pressure 136/86 [Right] O2 Sat by Pulse 94 99 100 Oximetry 08/06/21 08/06/21 08/06/21 11:45 12:00 12:15 Temperature Pulse Rate 82 82 86 Respiratory 21 17 20 Rate Blood Pressure 141/77 138/83 141/88 Blood Pressure [Right] O2 Sat by Pulse 97 97 98 Oximetry 08/06/21 08/06/21 08/06/21 12:30 12:45 13:00 Temperature Pulse Rate 97 H 83 80 Respiratory 20 22 15 Rate Blood Pressure 141/88 146/88 133/81 Blood Pressure [Right] O2 Sat by Pulse 98 97 99 Oximetry 08/06/21 08/06/21 13:15 13:30 Temperature Pulse Rate 84 87 Respiratory 26 H 21 Rate Blood Pressure 136/85 146/77 Blood Pressure [Right] O2 Sat by Pulse 97 100 Oximetry - Reevaluation(s) Reevaluation #1: 08/06/21 13:53 Caregiver is asking for mental health evaluation. When asked why she is asking that she stated that she is having some behavior. Patient remained calm the entire ER course. Patient denied any suicidal homicidal ideation. No visual or auditory hallucination. No acute psychosis. Patient is medically and psychiatrically stable for discharge. I advised the caregiver to follow-up with her psychiatric as an outpatient. ED Medical Decision Making - Lab Data Result diagrams: 08/06/21 10:08 08/06/21 10:08 - Medical Decision Making Patient is 61 years old female with history of cerebral palsy and seizure. Patient brought to the emergency room via EMS from a local residential for evaluation after a fall. Patient sustained a ground-level fall. EMS reported that the staff over there told him that she became a little bit slurred after the fall however upon arrival to the ER patient is alert, oriented x3 no acute distress with no evidence of slurred speech. Patient is moving all her extremities in no acute distress. Patient does not have any complaint now. She denied any headache, neck pain, chest pain, abdominal pain, shortness of breath, cough, fever or chills. Patient remained stable in the ER with a stable vital signs. Patient ree valuated by me several times. Patient remained alert, oriented x3 and in no acute distress and moving all her extremities. Stroke scale is 0. Caregiver has some concerned that patient is drowsy sometimes but as soon as walking I start talking the patient patient start working up and is back to her normal. At this moment I did not feel the patient need to be admitted to the hospital. Labs reviewed and unremarkable. CT brain is negative for acute finding. Patient caregiver advised to follow-up with the patient primary care physician in the next 2 to 3 days and to return to the ER if she develop any new symptoms. Critical care attestation.: If time is entered above; I have spent that time in minutes in the direct care of this critically ill patient, excluding procedure time. ED Disposition Clinical Impression: Minor head injury, Fall, Contusion of left foot Disposition: 01 HOME / SELF CARE / HOMELESS Is pt being admited?: No Condition: Stable Instructions: Fall Prevention in the Home, Adult, [id number], Foot Contusion, [id number], Head Injury, Adult, [id number] Referrals: PRIMARY CARE, [Referring] - 3-5 Days
[2021-08-06 10:29] LABS: Basophils % (Auto) 0.6 % (0.0-1.8); Eosinophils % (Auto) 0.3 % (0.0-4.3); Hematocrit 39.5 % (30.3-42.9); Hemoglobin 12.9 gm/dl (10.1-14.3); Lymphocytes % (Auto) 21.2 % (13.4-35.0); Mean Corpuscular HGB Conc 33 % (30-34); Mean Corpuscular Volume 94 fl (79-97); Monocytes # (Auto) 0.3 K/mm3 (0.0-0.8); Monocytes % (Auto) 7.1 % (0.0-7.3); Platelet Count 181 K/mm3 (140-440); Red Blood Count 4.22 M/mm3 (3.65-5.03); Red Cell Distribution Width 13.8 % (13.2-15.2)
--- NOTE | 2021-08-06 10:34 | Cat Scan Report ---
CT head/brain wo con INDICATION: head injury. TECHNIQUE: All CT scans at this location are performed using CT dose reduction for ALARA by means of automated e xposure control. COMPARISON: None available. FINDINGS: There is no acute hemorrhage, brain edema, or hydrocephalus. There is a stable chronic infarct in the left parietotemporal region. There is otherwise no significant atrophy. The included paranasal sinus es and mastoid air cells are clear. The orbits appear unremarkable. IMPRESSION: 1. No acute findings or adverse change from the prior exam. Signer Name: Fletcher George MD Signed: 08/06/2021 10:30 AM Workstation Name: [id number]
[2021-08-06 10:44] LABS: Bacteria,Urine 1+ /HPF (Negative); Bilirubin,Urine NEG (Negative); Blood,Urine NEG (Negative); Color,Urine Yellow (Yellow); Protein,Urine <15 mg/dL mg/dL (Negative); Urobilinogen,Urine < 2.0 mg/dL (<2.0)
[2021-08-06 10:56] LABS: Alanine Aminotransferase 19 units/L (7-56); Albumin 3.8 g/dL (3.9-5); BUN/Creatinine Ratio 16; Blood Urea Nitrogen 8 mg/dL (7-17); Calcium 8.7 mg/dL (8.4-10.2); Hemolysis Index 20
--- NOTE | 2021-08-06 12:49 | XRay Report ---
LEFT ANKLE 3 VIEWS INDICATION: Left ankle injury. COMPARISON: None. IMPRESSION: Borderline osteopenia. Chronic healed fractures through the distal shafts of the tibia a nd fibula are partially imaged. The tibial fracture has been internally fixated. There is no evidenc e for acute fracture or bone lesion. There are moderate degenerative changes at the ankle joint. Mode rate plantar spur. LEFT FOOT 2 VIEWS INDICATION: left foot injury. COMPARISON: None. IMPRESSION: Borderline osteopenia. There is a mild hallux valgus deformity with moderate degenerati ve changes at the first metatarsophalangeal joint. There are mild diffuse degenerative changes throug hout the toes and midfoot. No acute osseous injury or bone lesion is appreciated. Signer Name: Yony Marcos Jr, MD Signed: 08/06/2021 12:45 PM Workstation Name: [id number]
[2021-08-06 14:18] VITALS: BP 140/94
== END 2021-08-06 14:25 | disposition home or self-care (01) ==
LOC: ED 09:43
DX: S90.32XA Contusion of left foot, initial encounter (principal); S09.90XA Unspecified injury of head, initial encounter; W18.30XA Fall on same level, unspecified, initial encounter; Y93.89 Activity, other specified; Y92.89 Other specified places as the place of occurrence of the external cause; Y99.8 Other external cause status; F31.9 Bipolar disorder, unspecified; Z86.73 Personal history of transient ischemic attack (TIA), and cerebral infarction without residual deficits
CPT/HCPCS: 36415; 70450; 80053; 81001; 85025; 99285

== ENCOUNTER 2022-01-11 17:37 | Emergency (ER) | payer MEDICAID ==
[2022-01-11 18:35] VITALS: BP 139/88
--- NOTE | 2022-01-11 19:23 | Emergency Department Report ---
ED General Adult HPI - General Chief complaint: Sore Throat Stated complaint: CHOKED Time Seen by Provider: 01/11/22 18:22 Source: patient Mode of arrival: Ambulatory Limitations: No Limitations - History of Present Illness Initial comments: 61-year-old black female with a past medical history of seizures presents to the emergency department for evaluation of choking while eating lunch. Is accompanied by her caregiver who states that while patient was eating a hamburger for lunch, after a few bites, she started to cough and appeared to be choking. She states that patient coughed for a little while but has denied any shortness of breath and has not coughed since then. Caregiver states that she brought patient in just to make sure that she was okay to eat. Caregiver denies any history of dysphagia or aspiration. MD Complaint: Choking while eating lunch -: Sudden Severity scale (0 -10): 10 Associated Symptoms: cough. denies: chest pain, diaphoresis, fever/chills, headaches, loss of appetite, malaise, nausea/vomiting, rash, seizure, shortness of breath, syncope, weakness Treatments Prior to Arrival: none - Related Data Home Medications Medication Instructions Recorded Confirmed Last Taken Ascorbic Acid [Vitamin C] 500 mg PO BID 02/08/21 01/11/22 08/08/21 Calcium Carbonate/Vitamin D3 1 each PO QDAY 02/08/21 01/11/22 08/08/21 [Os-Jhony 500-Vit D3 200 Caplet] Cholecalciferol (Vitamin D3) 2,000 unit PO QDAY 02/08/21 01/11/22 08/08/21 [Vitamin D3 2,000 UNIT CAP] levETIRAcetam [Keppra TAB] 750 mg PO BID 02/08/21 01/11/22 08/08/21 AtorvaSTATin 10 mg PO QHS 08/15/21 01/11/22 08/08/21 Previous Rx's Medication Instructions Recorded Last Taken Type Phenytoin [Dilantin] 200 mg PO QDAY 35 Days #63 08/18/21 Unknown Rx capsule.er Topiramate [Topamax] 200 mg PO BID 30 Days #60 tab 08/18/21 Unknown Rx Allergies Allergy/AdvReac Type Severity Reaction Status Date / Time No Known Allergies Allergy Verified 01/11/22 18:36 ED Review of Systems ROS: Stated complaint: CHOKED Other details as noted in HPI Comment: All other systems reviewed and negative Constitutional: denies: chills, diaphoresis, fever, weakness ENT: denies: congestion Respiratory: denies: cough, shortness of breath, SOB with exertion, SOB at rest, stridor, wheezing Cardiovascular: denies: chest pain, palpitations, dyspnea on exertion, orthopn ea, edema, syncope Gastrointestinal: denies: abdominal pain, nausea, vomiting Musculoskeletal: denies: back pain Neurological: denies: headache, weakness ED Past Medical Hx - Past Medical History Hx CVA: Yes Hx Seizures: Yes Hx Psychiatric Treatment: Yes (bipolar, schizo-effective) Additional medical history: cerebal palsy - Social History Smoking Status: Never Smoker Substance Use Type: None - Medications Home Medications: Home Medications Medication Instructions Recorded Confirmed Last Taken Type Ascorbic Acid [Vitamin C] 500 mg PO BID 02/08/21 01/11/22 08/08/21 History Calcium Carbonate/Vitamin D3 1 each PO QDAY 02/08/21 01/11/22 08/08/21 History [Os-Jhony 500-Vit D3 200 Caplet] Cholecalciferol (Vitamin D3) 2,000 unit PO QDAY 02/08/21 01/11/22 08/08/21 History [Vitamin D3 2,000 UNIT CAP] levETIRAcetam [Keppra TAB] 750 mg PO BID 02/08/21 01/11/22 08/08/21 History AtorvaSTATin 10 mg PO QHS 08/15/21 01/11/22 08/08/21 History Phenytoin [Dilantin] 200 mg PO QDAY 35 Days #63 08/18/21 01/11/22 Unknown Rx capsule.er Topiramate [Topamax] 200 mg PO BID 30 Days #60 tab 08/18/21 01/11/22 Unknown Rx ED Physical Exam - General Limitations: No Limitations General appearance: alert, in no apparent distress - Head Head exam: Present: atraumatic, normocephalic - Eye Eye exam: Present: normal appearance. Absent: conjunctival injection - ENT ENT exam: Present: normal exam, normal orophraynx, mucous membranes moist - Expanded ENT Exam Expanded Mouth exam: Present: normal external inspection, tongue normal. Absent: drooling Teeth exam: Present: normal inspection Throat exam: Positive: normal inspection. Negative: tonsillar erythema, tonsillomegaly, tonsillar exudate, R peritonsillar mass, L peritonsillar mass - Neck Neck exam: Present: normal inspection, full ROM. Absent: tenderness, lymphadenopathy - Respiratory Respiratory exam: Present: normal lung sounds bilaterally. Absent: respiratory distress, wheezes, rales, rhonchi, stridor, chest wall tenderness - Cardiovascular Cardiovascular Exam: Present: regular rate, normal heart sounds - GI/Abdominal GI/Abdominal exam: Present: soft, normal bowel sounds. Absent: distended, tenderness, guarding, rebound, rigid - Extremities Exam Extremities exam: Present: normal inspection, full ROM, normal capillary refill. Absent: tenderness, pedal edema, joint swelling, calf tenderness - Back Exam Back exam: Present: normal inspection, full ROM. Absent: CVA tenderness (R), CVA tenderness (L) - Neurological Exam Neurological exam: Present: alert, oriented X3 - Psychiatric Psychiatric exam: Present: normal affect, normal mood - Skin Skin exam: Present: warm, dry, intact, normal color ED Course Vital Signs 01/11/22 01/11/22 17:47 18:34 Temperature 98.5 F 98.9 F Pulse Rate 76 73 Respiratory 17 20 Rate Blood Pressure 145/85 Blood Pressure 139/88 [Right] O2 Sat by Pulse 97 97 Oximetry ED Medical Decision Making - Medical Decision Making 61-year-old black female with a past medical history of seizures presents to the emergency department for evaluation of choking while eating lunch. Is accompanied by her caregiver who states that while patient was eating a hamburger for lunch, after a few bites, she started to cough and appeared to be choking. She states that patient coughed for a little while but has denied any shortness of breath and has not coughed since then. Caregiver states that she brought patient in just to make sure that she was okay to eat. Caregiver denies any history of dysphagia or aspiration. No acute abnormalities noted on assessment. Patient continues to deny shortness of breath and chest pain. Vital signs within normal limits, patient in no acute distress, and no signs of aspiration noted. Patient will be discharged home to follow-up with her primary care provider if worsening symptoms. Caregiver verbalized understanding of and agreement with plan of care. Critical care attestation.: If time is entered above; I have spent that time in minutes in the direct care of this critically ill patient, excluding procedure time. ED Disposition Clinical Impression: Choking episode Disposition: 01 HOME / SELF CARE / HOMELESS Is pt being admited?: No Does the pt Need Aspirin: No Condition: Stable Instructions: Food Safety Eating Plan Additional Instructions: Follow-up with primary care provider for further evaluation and management. Return to the emergency department as needed. Referrals: EMERITA HOWE MD [Referring] - 3-5 Days Time of Disposition: 19:23
== END 2022-01-12 08:07 | disposition home or self-care (01) ==
LOC: ED 17:37
DX: T17.928A Food in respiratory tract, part unspecified causing other injury, initial encounter (principal); R56.9 Unspecified convulsions; R05.9 Cough, unspecified; F31.9 Bipolar disorder, unspecified; F20.9 Schizophrenia, unspecified; Z79.899 Other long term (current) drug therapy; X58.XXXA Exposure to other specified factors, initial encounter; Y93.89 Activity, other specified; Y92.89 Other specified places as the place of occurrence of the external cause; Y99.8 Other external cause status
CPT/HCPCS: 99282